=== PATIENT | female | born 2000 | race African-American/Black ===

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

== ENCOUNTER 2019-01-06 20:23 | Emergency (ER) | payer MEDICAID ==
--- NOTE | 2019-01-07 00:35 | ER Document Report ---
HPI - HPI Patient complains to provider of: Cannot hold anything in her right hand Time Seen by Provider: 01/07/19 00:27 Pain Level: 4 Context: 18-year-old well-appearing female presents to the emergency department for chief complaint of inability to hold anything in her right hand. Okay patient has MS is concerned she is having a flare. Patient denies any vision changes. Patient denies any other motor problems. Patient denies any other symptoms as this is a localized problem. - REPRODUCTIVE LMP: now Reproductive: DENIES: : Past Medical History - Social History Smoking Status: Unknown if Ever Smoked Family History: Reviewed & Not Pertinent, Thyroid Disfunction, Other - Anemia - Past Medical History Cardiac Medical History: Denies: Hx Coronary Artery Disease, Hx Heart Attack, Hx Hypertension Pulmonary Medical History: Reports: Hx Bronchitis Denies: Hx Asthma, Hx COPD, Hx Pneumonia Neurological Medical History: Reports: Hx Migraine - MS. Denies: Hx Cerebrovascular Accident, Hx Seizures Renal/ Medical History: Reports: Hx Pelvic Inflammatory Disease. Denies: Hx Peritoneal Dialysis Musculoskeletal Medical History: Denies Hx Arthritis, Reports Hx Multiple Sclerosis - [facility]ed at [facility]. Currently Dr. Weinberg. Spoke to her today Psychiatric Medical History: Reports: Hx Depression - Immunizations Immunizations up to date: Yes Hx Diphtheria, Pertussis, Tetanus Vaccination: Yes - <5 years Vertical Provider Document - CONSTITUTIONAL Notes: PHYSICAL EXAMINATION: Reviewed vital signs and charting by RN GENERAL: Alert, interacts well. No acute distress. HEAD: Normocephalic, atraumatic. EYES: Pupils equal, round, and reactive to light. Extraocular movements intact. ENT: Oral mucosa moist, tongue midline. NECK: Full range of motion. Supple. Trachea midline. LUNGS: Clear to auscultation bilaterally, no wheezes, rales, or rhonchi. No respiratory distress. HEART: Regular rate and rhythm. No murmur ABDOMEN: soft, non-tender. Non-distended. Bowel sounds present in all 4 quadrants. no McBurney's point tenderness, no Mak sign. EXTREMITIES: Moves all 4 extremities spontaneously. No edema, No cyanosis. BACK: no cervical, thoracic, lumbar midline tenderness. No saddle anesthesia, normal distal neurovascular exam. NEUROLOGICAL: Alert and oriented. Normal speech. 5/5 strength bilateral upper and lower extremities. 5/5 director mortgage strength bilateral. I asked patient to hold bottle in her right hand and her right hand starts shaking. No focal neuro deficits. PSYCH: Normal affect, normal mood. SKIN: Warm, dry, normal turgor. No rashes or lesions noted. - INFECTION CONTROL TRAVEL OUTSIDE OF THE [place] IN LAST 30 DAYS: No Course - Re-evaluation Re-evalutation: 01/07/19 00:29 Well-appearing 18-year-old female presents with inability to hold anything steady in her right hand. She does have a normal strength and is concerned she is having an MS flareup patient states that she has a follow-up with a neurologist on January 09. Plan is to give her stress dose of Solu- Medrol 1000 mg with a standing order to receive stress doses of 1000 mg for the next 2 days. Patient denies any visual disturbances. 01/07/19 00:35 01/07/19 00:44 - Vital Signs Vital signs: Temp Pulse Resp BP Pulse Ox 98.4 F 66 15 114/81 100 01/06/19 20:54 01/06/19 20:54 01/06/19 20:54 01/06/19 20:54 01/06/19 20:54 Discharge - Discharge Clinical Impression: Tremor of right hand Condition: Good Disposition: HOME, SELF-CARE Additional Instructions: You are seen the emergency department this evening for your right hand being unsteady. Because this is happened in the past and he states this is consistent with a MS flareup we have given you 1 dose of steroids here in the emergency department. Patient relations will contact you and you must come back for the next 2 days to get another dose tomorrow and then the following day. Please return to the emergency department if you become acutely weak, pass out, you are unable to move your arms or legs. Or if any other concerning symptoms.
[2019-01-07] MEDS ORDERED: METHYLPREDNISOLONE INJ 1000 MG VIAL IV ONE ×2 (00:36→21:00)
[2019-01-07] MEDS ORDERED: METHYLPREDNISOLONE INJ 1000 MG VIAL IV SCH (00:45)
[2019-01-07 03:03] VITALS: BP 120/67
[2019-01-08] MEDS ORDERED: METHYLPREDNISOLONE INJ 1000 MG VIAL IV SCH (21:30)
== END 2019-01-07 00:30 | disposition home or self-care (01) ==
LOC: ER 20:23
DX: R25.1 Tremor, unspecified (principal); G35 Multiple sclerosis
CPT/HCPCS: J2930

== ENCOUNTER 2019-01-29 14:30 | Emergency (ER) | payer MEDICAID ==
--- NOTE | 2019-01-29 14:53 | ER Document Report ---
ED Medical Screen (RME) - General Chief Complaint: Weakness Stated Complaint: HAND SHAKING Time Seen by Provider: 01/29/19 14:51 Mode of Arrival: Ambulatory Information source: Patient TRAVEL OUTSIDE OF THE [place] IN LAST 30 DAYS: No - HPI Patient complains to provider of: MS exacerbation Onset: This morning - pt has MS and has had facial pain and R hand shaking - Related Data Allergies/Adverse Reactions: No Known Allergies Allergy (Verified 01/29/19 14:31) Past Medical History - Social History Family history: None - Past Medical History Cardiac Medical History: Denies: Hx Coronary Artery Disease, Hx Heart Attack, Hx Hypertension Pulmonary Medical History: Reports: Hx Bronchitis Denies: Hx Asthma, Hx COPD, Hx Pneumonia Neurological Medical History: Reports: Hx Migraine - MS. Denies: Hx Cerebrovascular Accident, Hx Seizures Renal/ Medical History: Reports: Hx Pelvic Inflammatory Disease. Denies: Hx Peritoneal Dialysis Musculoskeltal Medical History: Denies Hx Arthritis, Reports Hx Multiple Sclerosis - Followed at [facility]. Currently Dr. Weinberg. Spoke to her today Psychiatric Medical History: Reports: Hx Depression - Immunizations Immunizations up to date: Yes Hx Diphtheria, Pertussis, Tetanus Vaccination: Yes - <5 years Physical Exam - Vital signs Vitals: Temp Pulse Resp BP Pulse Ox 98.3 F 73 18 124/79 99 01/29/19 14:37 01/29/19 14:37 01/29/19 14:37 01/29/19 14:37 01/29/19 14:37 Course - Vital Signs Vital signs: Temp Pulse Resp BP Pulse Ox 98.3 F 73 18 124/79 99 01/29/19 14:37 01/29/19 14:37 01/29/19 14:37 01/29/19 14:37 01/29/19 14:37
[2019-01-29 15:33] LABS: ABSOLUTE EOSINOPHILS # (AUTO) 0.4 10^3/uL (0.0-0.6); ABSOLUTE LYMPHOCYTES (AUTO) 1.3 10^3/uL (0.5-4.7); ABSOLUTE MONOCYTES (AUTO) 0.4 10^3/uL (0.1-1.4); ABSOLUTE NEUT (AUTO) 1.3 10^3/uL (1.7-8.2); EOSINOPHILS % (AUTO) 11.2 % (0-6); HEMATOCRIT 39.9 % (36.0-47.0); LYMPHOCYTES % (AUTO) 38.8 % (13-45); MEAN CORPUSCULAR HEMOGLOBIN 26.3 pg (27.0-33.4); MEAN CORPUSCULAR HGB CONC 32.5 g/dL (32.0-36.0); MEAN CORPUSCULAR VOLUME 81 fl (80-97); MONOCYTES % (AUTO) 10.5 % (3-13); PLATELET COUNT 313 10^3/uL (150-450); RED BLOOD COUNT 4.93 10^6/uL (3.72-5.28); RED CELL DISTRIBUTION WIDTH 14.6 % (11.5-14.0); SEGMENTED NEUTROPHILS % (AUTO) 38.5 % (42-78); TOTAL CELLS COUNTED % (AUTO) 100 %; WHITE BLOOD COUNT 3.5 10^3/uL (4.0-10.5)
[2019-01-29 15:37] LABS: APPEARANCE,URINE SLIGHTLY-CLOUDY; BILIRUBIN,URINE NEGATIVE (NEGATIVE); COLOR,URINE YELLOW; GLUCOSE, URINE NEGATIVE (NEGATIVE); KETONES,URINE NEGATIVE (NEGATIVE); LEUKOCYTE ESTERASE,URINE NEGATIVE (NEGATIVE); NITRITE,URINE NEGATIVE (NEGATIVE); PROTEIN,URINE 30 mg/dL (NEGATIVE); URINE SPECIFIC GRAVITY 1.025
[2019-01-29 15:50] LABS: ALANINE AMINOTRANSFERASE 175 U/L (5-35); ALBUMIN 4.3 g/dL (3.7-5.6); ALKALINE PHOSPHATASE 60 U/L (50-135); ANION GAP 6 (5-19); ASPARTATE AMINO TRANSFERASE 89 U/L (5-30); BILIRUBIN,DIRECT 0.1 mg/dL (0.0-0.4); BILIRUBIN,TOTAL 0.4 mg/dL (0.2-1.3); BLOOD UREA NITROGEN 11 mg/dL (7-20); CALCIUM 10.2 mg/dL (8.4-10.2); CARBON DIOXIDE 30 mmol/L (22-30); CHLORIDE 106 mmol/L (98-107); GLUCOSE 76 mg/dL (75-110); POTASSIUM 4.6 mmol/L (3.6-5.0); SODIUM 142.1 mmol/L (137-145); TOTAL PROTEIN 7.5 g/dL (6.3-8.2)
[2019-01-29] MEDS ORDERED: METOCLOPRAMIDE HCL 10 MG TABLET PO ONE (19:18)
[2019-01-29] MEDS ORDERED: PREDNISONE 20 MG TABLET PO ONE (19:18)
[2019-01-29 19:19] VITALS: BP 151/94
--- NOTE | 2019-01-29 19:19 | ER Document Report ---
ED General - General Chief Complaint: Weakness Stated Complaint: HAND SHAKING Time Seen by Provider: 01/29/19 14:51 Mode of Arrival: Ambulatory Notes: Patient is a 18-year-old female with a past medical history of multiple sclerosis who presents with several weeks of twitching of her right hand and several days of pain to the right side of her face. Patient was treated with a burst of steroids in mid December for the right hand twitching. States that this did not provide any significant change in her symptoms. She describes this is a tremulousness or spasming of her right hand that comes and goes. Nothing seems to improve or worsen that. She denies any other areas of focal weakness, numbness, confusion or changes in vision. She also complains of a throbbing, aching pain to the right side of her face it likewise comes and goes. Also notes that she has had this in the past with MS. She is scheduled to see her neurologist in 3 days she is not currently on any form of controlled medications for her MS. TRAVEL OUTSIDE OF THE [place] IN LAST 30 DAYS: No - Related Data Allergies/Adverse Reactions: No Known Allergies Allergy (Verified 01/29/19 14:31) Past Medical History - General Information source: Patient - Social History Smoking Status: Never Smoker Frequency of alcohol use: None Drug Abuse: Marijuana Lives with: Spouse/Significant other Family History: Reviewed & Not Pertinent, Thyroid Disfunction, Other - Anemia Patient has suicidal ideation: No Patient has homicidal ideation: No - Past Medical History Cardiac Medical History: Denies: Hx Coronary Artery Disease, Hx Heart Attack, Hx Hypertension Pulmonary Medical History: Reports: Hx Bronchitis Denies: Hx Asthma, Hx COPD, Hx Pneumonia Neurological Medical History: Reports: Hx Migraine - MS. Denies: Hx Cerebrovascular Accident, Hx Seizures Renal/ Medical History: Reports: Hx Pelvic Inflammatory Disease. Denies: Hx Peritoneal Dialysis Musculoskeletal Medical History: Denies Hx Arthritis, Reports Hx Multiple Sclerosis - [facility] at [facility]. Currently Dr. Weinberg. Spoke to her today Psychiatric Medical History: Reports: Hx Depression Past Surgical History: Reports: Hx Gynecologic Surgery - D&C - Immunizations Immunizations up to date: Yes Hx Diphtheria, Pertussis, Tetanus Vaccination: Yes - <5 years Review of Systems - Review of Systems Notes: Constitutional: Negative for fever. HENT: Negative for sore throat. Eyes: Negative for visual changes. Cardiovascular: Negative for chest pain. Respiratory: Negative for shortness of breath. Gastrointestinal: Negative for abdominal pain, vomiting or diarrhea. Genitourinary: Negative for dysuria. Musculoskeletal: Negative for back pain. Skin: Negative for rash. Neurological: Negative for headaches, weakness or numbness. 10 point ROS negative except as marked above and in HPI. Physical Exam - Vital signs Vitals: Temp Pulse Resp BP Pulse Ox 98.3 F 73 18 124/79 99 01/29/19 14:37 01/29/19 14:37 01/29/19 14:37 01/29/19 14:37 01/29/19 14:37 Interpretation: Normal Notes: PHYSICAL EXAMINATION: GENERAL: Well-appearing, well-nourished and in no acute distress. HEAD: Atraumatic, normocephalic. EYES: Pupils equal round and reactive to light, extraocular movements intact, sclera anicteric, conjunctiva are normal. ENT: nares patent, oropharynx clear without exudates. Moist mucous membranes. NECK: Normal range of motion, supple without lymphadenopathy LUNGS: Breath sounds clear to auscultation bilaterally and equal. No wheezes rales or rhonchi. HEART: Regular rate and rhythm without murmurs ABDOMEN: Soft, nontender, normoactive bowel sounds. No guarding, no rebound. N o masses appreciated. EXTREMITIES: Normal range of motion, no pitting or edema. No cyanosis. NEUROLOGICAL: Face symmetric. Tongue protrudes midline. Extraocular motions intact. Pupils are 2 mm and equally reactive. Normal speech, normal gait. 5 out of 5 strength in both the distal and proximal upper and lower extremities bilaterally. Sensation is grossly intact throughout. Finger to nose testing normal. Pronator drift normal. PSYCH: Normal mood, normal affect. SKIN: Warm, Dry, normal turgor, no rashes or lesions noted. Course - Re-evaluation Re-evalutation: 01/29/19 19:16 Patient presents with ongoing tremulousness of the right hand right facial pain. Has had the symptoms for approximately 3-4 weeks despite steroid infusion and has had similar symptoms in the past with her multiple sclerosis. She is unfort unately not on any form of controlled medication currently. She is scheduled to see neurology at [place] 2 days from today. On exam she has no focal neurologic deficit although appears to have a tremor of the right hand that does intermittently extinguish spontaneously. Vitals and labs otherwise unremarkable. No indication for neuroimaging today. I have given the patient a brief steroid burst of oral prednisone as well as Reglan as needed for her facial pain. At this time will discharge with return precautions and follow-up recommendations. Verbal discharge instructions given a the bedside and opportunity for questions given. Medication warnings reviewed. Patient is in agreement with this plan and has verbalized understanding of return precautions and the need for primary care follow-up in the next 24-72 hours. - Vital Signs Vital signs: Temp Pulse Resp BP Pulse Ox 98.1 F 74 16 151/94 H 98 01/29/19 19:17 01/29/19 19:17 01/29/19 19:17 01/29/19 19:17 01/29/19 19:17 - Laboratory Result Diagrams: 01/29/19 15:29 01/29/19 15:29 Laboratory results interpreted by me: 01/29/19 01/29/19 01/29/19 15:29 15:29 15:29 WBC 3.5 L MCH 26.3 L RDW 14.6 H Seg Neutrophils % 38.5 L Eosinophils % 11.2 H Absolute Neutrophils 1.3 L AST 89 H ALT 175 H Urine Protein 30 H Urine Blood SMALL H Urine Urobilinogen 2.0 H Urine Ascorbic Acid 40 H Discharge - Discharge Clinical Impression: Right hand pain, Tremor of right hand, Right facial pain Condition: Good Disposition: HOME, SELF-CARE Additional Instructions: Please follow-up with your neurologist as scheduled. Take the prednisone at that has been prescribed until completed. Take oral Reglan 1-2 tabs every 6 hours as needed for headache or facial pain. Return if you develop fever of g reater than 101 F, focal weakness, difficulty walking, confusion, or any other symptoms that are concerning to you. Prescriptions: Metoclopramide HCl [Reglan 10 mg Tablet] 1 - 2 tab PO ASDIR PRN #25 tablet PRN Reason: Prednisone [Deltasone 20 mg Tablet] 2 tab PO DAILY 5 Days tablet
== END 2019-01-29 19:55 | disposition home or self-care (01) ==
LOC: ER 14:30
DX: G35 Multiple sclerosis (principal); M79.641 Pain in right hand; R51 Headache; R25.1 Tremor, unspecified; F12.10 Cannabis abuse, uncomplicated
CPT/HCPCS: 99283; 36415; 85025; 81025; 80053; 81001; J3490; J7512

== ENCOUNTER 2019-06-17 00:55 | Emergency (ER) | payer MEDICAID ==
--- NOTE | 2019-06-17 03:35 | ER Document Report ---
HPI - HPI Time Seen by Provider: 06/17/19 03:17 Pain Level: 4 Context: Patient is a 18-year-old female who presents emergency department with a chief complaint of right ear pain. She states that she has had her ear pain for the past few weeks. Patient states that it is itchy. Patient has been using Q-tips to help clear her ear out. Patient has not seen a primary care provider for this issue. Patient denies any fever, body aches, chills, or other symptoms. - ROS Notes: REVIEW OF SYSTEMS: CONSTITUTIONAL : Denies recent illness. Denies recent unintentional weight loss. Denies fever, chills, or sweats. EENT: See HPI CARDIOVASCULAR: Denies chest pain. RESPIRATORY: Denies shortness of breath, cough, congestion, difficulty breathing, or wheezing. GASTROINTESTINAL: Denies nausea, vomiting, and diarrhea. Denies abdominal pain. Denies constipation. GENITOURINARY: Denies difficulty urinating, burning, blood in urine, urgency or frequency. MUSCULOSKELETAL: Denies neck and back pain. Denies joint pain or swelling. SKIN: See HPI HEMATOLOGIC : Denies easy bruising or bleeding. LYMPHATIC: Denies swollen, painful, enlarged glands. NEUROLOGICAL: Denies no numbness or tingling denies weakness. Denies headache. Denies altered mental status. Denies alteration in speech. PSYCHIATRIC: Denies stress, anxiety, alteration in sleep patterns, or depression. All other systems reviewed and negative. - REPRODUCTIVE Reproductive: DENIES: : Past Medical History - General Information source: Patient - Social History Smoking Status: Never Smoker Family History: Reviewed & Not Pertinent, Thyroid Disfunction, Other - Anemia - Past Medical History Cardiac Medical History: Denies: Hx Coronary Artery Disease, Hx Heart Attack, Hx Hypertension Pulmonary Medical History: Reports: Hx Bronchitis Denies: Hx Asthma, Hx COPD, Hx Pneumonia Neurological Medical History: Reports: Hx Migraine - MS. Denies: Hx Cerebrovascular Accident, Hx Seizures Renal/ Medical History: Reports: Hx Pelvic Inflammatory Disease. Denies: Hx Peritoneal Dialysis Musculoskeletal Medical History: Denies Hx Arthritis, Reports Hx Multiple Sclerosis - Followed at [facility]. Currently Dr. Weinberg. Psychiatric Medical History: Reports: Hx Depression Past Surgical History: Reports: Hx Gynecologic Surgery - D&C - Immunizations Immunizations up to date: Yes Hx Diphtheria, Pertussis, Tetanus Vaccination: Yes - <5 years Vertical Provider Document - CONSTITUTIONAL Notes: PHYSICAL EXAMINATION: GENERAL: Appears well, healthy, well-nourished, no acute distress. HEAD: Normocephalic, atraumatic. EYES: PERRL, conjunctiva normal, all extraocular movements intact, sclera nonicteric ENT: Moist mucous membranes. Dry flaky skin noted to external auditory canal. Edema, erythema, and purulent drainage noted at tympanic membrane. Injected tympanic membrane NECK: Supple, no noticeable swelling, redness, rash. Normal range of motion. LUNGS: Equal breath sounds bilaterally and clear to auscultation. No wheezes rales or rhonchi. CARDIOVASCULAR: S1-S2, regular rate, regular rhythm. Radial pulses 2+, normal. EXTREMITIES: Normal strength and range of motion, no pitting or edema. No cyanosis. NEUROLOGICAL: Moves all extremities upon command. PSYCH: Normal mood, normal affect. SKIN: Warm, dry. No rash, lesions, ulcerations noted. Normal skin turgor. Dry flaky skin to right open skin noted anteriorly of the tragus. - INFECTION CONTROL TRAVEL OUTSIDE OF THE [place] IN LAST 30 DAYS: No Course - Re-evaluation Re-evalutation: 06/17/19 03:35 Patient's physical exam is consistent with otitis media and otitis externa. She also does have some cellulitis noted. Tympanic membrane is erythematous and bulging. I will start her on Augmentin to have broad-spectrum coverage. Will cover her otitis externa. And Ciprodex. She will follow-up with ENT. Patient does not have any pain at the mastoid process. I do not suspect mastoiditis. Follow-up precautions were given. Verbal discharge instructions were given to the patient. They verbalized understanding. They are stable for discharge. - Vital Signs Vital signs: Temp Pulse Resp BP Pulse Ox 98.1 F 86 18 99/77 L 98 06/17/19 00:59 06/17/19 00:59 06/17/19 00:59 06/17/19 00:59 06/17/19 00:59 Discharge - Discharge Clinical Impression: Otitis media Qualifiers: Otitis media type: mucoid Chronicity: unspecified Laterality: right Qualified Code(s): H65.91 - Unspecified nonsuppurative otitis media, right ear Otitis externa Qualifiers: Otitis externa type: noninfectious Noninfectious otitis externa type: eczematoid Chronicity: unspecified Laterality: right Qualified Code(s): H60.541 - Acute eczematoid otitis externa, right ear Condition: Stable Disposition: HOME, SELF-CARE Instructions: Otitis Externa ([facility]) Additional Instructions: You were seen today in the emergency department for right ear pain. You are being started on antibiotics. Please take all your antibiotics as prescribed. Follow-up with the specialist below. You are being given eardrops. Place 4 drops to your right ear twice a day for 10 days. DO NOT USE Q-TIPS to clean your ears. Prescriptions: Amox Tr/Potassium Clavulanate [Augmentin 875-125 Tablet] 1 tab PO BID 10 Days #20 tablet Referrals: LISA OATES DO [ASSOCIATE] - Follow up in 1 week
[2019-06-17] MEDS ORDERED: AMOXICILLIN TR/POT CLAVULANATE 500-125 MG TAB PO ONE (03:36)
[2019-06-17] MEDS ORDERED: CIPROFLOXACIN HCL/DEXAMETH OTIC DROP 7.5 ML AD ONE (03:37)
[2019-06-17] MEDS ORDERED: AMOXICILLIN TRIHYD 250 MG CAPSULE PO ONE (03:37)
[2019-06-17 04:03] VITALS: BP 105/66
== END 2019-06-17 03:54 | disposition home or self-care (01) ==
LOC: ER 00:55
DX: H65.91 Unspecified nonsuppurative otitis media, right ear (principal); H60.541 Acute eczematoid otitis externa, right ear
CPT/HCPCS: 99282; J3490 ×3

== ENCOUNTER 2019-08-10 17:37 | Emergency (ER) | payer SELFPAY ==
--- NOTE | 2019-08-10 18:02 | ER Document Report ---
ED Medical Screen (RME) - General Chief Complaint: Numbness Stated Complaint: RIGHT SIDE NUMBNESS Time Seen by Provider: 08/10/19 17:59 Mode of Arrival: Ambulatory Information source: Patient Notes: 19-year-old female presented to ED for complaint of right-sided body pain. He states is been hurting since the beginning of the year. He states he has multiple sclerosis and has not been to an MD since before her child was born she states that every time she has a child that she has another problem with her multiple sclerosis. He states he has been having pain to the right side since her last child was born. She states she cannot see very far and she has some pain in the left side of her jaw. She states she might have a tooth ache. She states she has had MRSA in her pelvis abscess and she had a wisdom tooth pulled. I have greeted and performed a rapid initial assessment of this patient. A comprehensive ED assessment and evaluation of the patient, analysis of test results and completion of medical decision making process will be conducted by an additional ED providers. TRAVEL OUTSIDE OF THE [place] IN LAST 30 DAYS: No - Related Data Allergies/Adverse Reactions: No Known Allergies Allergy (Verified 08/10/19 17:40) Past Medical History - Social History Family history: None - Past Medical History Cardiac Medical History: Denies: Hx Coronary Artery Disease, Hx Heart Attack, Hx Hypertension Pulmonary Medical History: Reports: Hx Bronchitis Denies: Hx Asthma, Hx COPD, Hx Pneumonia Neurological Medical History: Reports: Hx Migraine - MS. Denies: Hx Cerebrovascular Accident, Hx Seizures Renal/ Medical History: Reports: Hx Pelvic Inflammatory Disease. Denies: Hx Peritoneal Dialysis Musculoskeltal Medical History: Denies Hx Arthritis, Reports Hx Multiple Sclerosis - Followed at [facility]. Currently Dr. Weinberg. Psychiatric Medical History: Reports: Hx Depression Past Surgical History: Reports: Hx Gynecologic Surgery - D&C - Immunizations Immunizations up to date: Yes Hx Diphtheria, Pertussis, Tetanus Vaccination: Yes - <5 years Physical Exam - Vital signs Vitals: Temp Pulse Resp BP Pulse Ox 98.1 F 81 18 100/71 96 08/10/19 17:45 08/10/19 17:45 08/10/19 17:45 08/10/19 17:45 08/10/19 17:45 Course - Vital Signs Vital signs: Temp Pulse Resp BP Pulse Ox 98.1 F 81 18 100/71 96 08/10/19 17:45 08/10/19 17:45 08/10/19 17:45 08/10/19 17:45 08/10/19 17:45
[2019-08-10 19:57] LABS: ABSOLUTE BASOPHILS # (AUTO) 0.1 10^3/uL (0.0-0.2); ABSOLUTE EOSINOPHILS # (AUTO) 0.2 10^3/uL (0.0-0.6); ABSOLUTE LYMPHOCYTES (AUTO) 1.8 10^3/uL (0.5-4.7); ABSOLUTE MONOCYTES (AUTO) 0.3 10^3/uL (0.1-1.4); ABSOLUTE NEUT (AUTO) 1.5 10^3/uL (1.7-8.2); BASOPHILS % (AUTO) 1.5 % (0-2); EOSINOPHILS % (AUTO) 4.1 % (0-6); HEMATOCRIT 33.6 % (36.0-47.0); HEMOGLOBIN 10.7 g/dL (12.0-15.5); MEAN CORPUSCULAR HEMOGLOBIN 22.6 pg (27.0-33.4); MEAN CORPUSCULAR HGB CONC 31.8 g/dL (32.0-36.0); MEAN CORPUSCULAR VOLUME 71 fl (80-97); MONOCYTES % (AUTO) 8.7 % (3-13); PLATELET COUNT 334 10^3/uL (150-450); RED BLOOD COUNT 4.73 10^6/uL (3.72-5.28); RED CELL DISTRIBUTION WIDTH 17.5 % (11.5-14.0); SEGMENTED NEUTROPHILS % (AUTO) 39.7 % (42-78); TOTAL CELLS COUNTED % (AUTO) 100 %; WHITE BLOOD COUNT 3.8 10^3/uL (4.0-10.5)
[2019-08-10 20:12] LABS: APPEARANCE,URINE SLIGHTLY-CLOUDY; BILIRUBIN,URINE NEGATIVE (NEGATIVE); COLOR,URINE YELLOW; GLUCOSE, URINE NEGATIVE (NEGATIVE); KETONES,URINE NEGATIVE (NEGATIVE); LEUKOCYTE ESTERASE,URINE NEGATIVE (NEGATIVE); NITRITE,URINE NEGATIVE (NEGATIVE); PROTEIN,URINE NEGATIVE (NEGATIVE); URINE SPECIFIC GRAVITY 1.021
[2019-08-10 20:16] LABS: ALBUMIN 4.7 g/dL (3.5-5.0); ALKALINE PHOSPHATASE 70 U/L (38-126); ANION GAP 9 (5-19); ASPARTATE AMINO TRANSFERASE 26 U/L (14-36); BILIRUBIN,DIRECT 0.1 mg/dL (0.0-0.4); BILIRUBIN,TOTAL 0.4 mg/dL (0.2-1.3); BLOOD UREA NITROGEN 10 mg/dL (7-20); CARBON DIOXIDE 25 mmol/L (22-30); CHLORIDE 107 mmol/L (98-107); GLUCOSE 82 mg/dL (75-110); POTASSIUM 3.8 mmol/L (3.6-5.0)
[2019-08-10 20:24] LABS: ADD MANUAL MICROSCOPIC YES
[2019-08-10 20:26] LABS: WBC,URINE RARE /HPF
[2019-08-10 20:35] LABS: URINE AMPHETAMINES SCREEN NEGATIVE; URINE BARBITURATES SCREEN NEGATIVE; URINE BENZODIAZEPINES SCREEN NEGATIVE; URINE COCAINE SCREEN NEGATIVE; URINE MARIJUANA (THC) SCREEN UNCONFIRMED POSITIVE; URINE METHADONE SCREEN NEGATIVE; URINE PHENCYCLIDINE SCREEN NEGATIVE
[2019-08-10] MEDS ORDERED: PREDNISONE 20 MG TABLET PO ONE (22:44)
--- NOTE | 2019-08-10 22:47 | ER Document Report ---
HPI - HPI Time Seen by Provider: 08/10/19 17:59 Pain Level: Denies Notes: Patient is a 19-year-old female presenting to the emergency room with pain to the right side of her body since November. Patient reports she has a history of chronic pain due to multiple medical conditions. She denies any acute illness, denies any nausea, vomiting, diarrhea, fever, dysuria, vaginal bleeding or abnormal discharge. - REPRODUCTIVE Reproductive: DENIES: : Past Medical History - General Information source: Patient - Social History Smoking Status: Never Smoker Chew tobacco use (# tins/day): No Frequency of alcohol use: None Drug Abuse: None Family History: Reviewed & Not Pertinent, Thyroid Disfunction, Other - Anemia Patient has suicidal ideation: No Patient has homicidal ideation: No - Past Medical History Cardiac Medical History: Denies: Hx Coronary Artery Disease, Hx Heart Attack, Hx Hypertension Pulmonary Medical History: Reports: Hx Bronchitis Denies: Hx Asthma, Hx COPD, Hx Pneumonia Neurological Medical History: Reports: Hx Migraine - MS. Denies: Hx Cerebrovascular Accident, Hx Seizures Renal/ Medical History: Reports: Hx Pelvic Inflammatory Disease. Denies: Hx Peritoneal Dialysis Musculoskeletal Medical History: Denies Hx Arthritis, Reports Hx Multiple Sclerosis - Followed at [facility]. Currently Dr. Weinberg. Psychiatric Medical History: Reports: Hx Depression Past Surgical History: Reports: Hx Gynecologic Surgery - D&C - Immunizations Immunizations up to date: Yes Hx Diphtheria, Pertussis, Tetanus Vaccination: Yes - <5 years Vertical Provider Document - CONSTITUTIONAL Notes: PHYSICAL EXAMINATION: GENERAL: Well-appearing, well-nourished and in no acute distress. HEAD: Atraumatic, normocephalic. EYES: Pupils equal round and reactive to light, extraocular movements intact, conjunctiva are normal. ENT: Nares patent, oropharynx clear without exudates. Moist mucous membranes. NECK: Normal range of motion, supple without lymphadenopathy LUNGS: Breath sounds clear to auscultation bilaterally and equal. No wheezes rales or rhonchi. HEART: Regular rate and rhythm without murmurs ABDOMEN: Soft, nontender, nondistended abdomen. No guarding, no rebound. No masses appreciated. Female : deferred Musculoskeletal: Normal range of motion, no pitting or edema. No cyanosis. NEUROLOGICAL: Cranial nerves grossly intact. Normal speech, normal gait. Normal sensory, motor exams PSYCH: Normal mood, normal affect. SKIN: Warm, Dry, normal turgor, no rashes or lesions noted. - INFECTION CONTROL TRAVEL OUTSIDE OF THE [place] IN LAST 30 DAYS: No Course - Re-evaluation Re-evalutation: Patient appears well, nontoxic is alert and answering all questions. Her work- up today was unremarkable. She will be started on steroid course for an MS flare. Patient verbalizes understanding and agreement with this plan. The patient's emergency department workup and current diagnosis were explained to the patient and or family. Follow-up instructions were provided. Medications if prescribed were discussed. Instructions for when to return to the emergency department including specific worrisome symptoms were discussed with the patient and/or family. - Vital Signs Vital signs: Temp Pulse Resp BP Pulse Ox 98.1 F 79 16 98/67 L 100 08/10/19 17:45 08/10/19 21:28 08/10/19 21:28 08/10/19 21:28 08/10/19 21:28 - Laboratory Result Diagrams: 08/10/19 19:35 08/10/19 19:35 Laboratory results interpreted by me: 08/10/19 08/10/19 19:35 19:35 WBC 3.8 L Hgb 10.7 L Hct 33.6 L MCV 71 L MCH 22.6 L MCHC 31.8 L RDW 17.5 H Lymph % (Auto) 46.0 H Absolute Neuts (auto) 1.5 L Seg Neutrophils % 39.7 L Urine Urobilinogen 2.0 H Discharge - Discharge Clinical Impression: Multiple sclerosis Chronic pain Qualifiers: Chronic pain type: other chronic pain Qualified Code(s): G89.29 - Other chronic pain Condition: Stable Disposition: HOME, SELF-CARE Additional Instructions: You were seen in the emergency department today for your flareup of chronic pain. Your work-up today was unremarkable. I am starting you on a round of steroids. It is important that you call your primary care provider, let them know you are seen here in the emergency department and had a normal work-up. Let them know that you are having a flareup of your MS. Please return to the emergency department for any new or worsening symptoms. Prescriptions: Prednisone [Sterapred Ds] 1 pkg PO ASDIR PRN 12 Days [email or web address] PRN Reason: Referrals: [facility] [Provider Group] - Follow up as needed
[2019-08-10 23:03] VITALS: BP 114/54
== END 2019-08-10 23:03 | disposition home or self-care (01) ==
LOC: ER 17:37
DX: G35 Multiple sclerosis (principal); G89.29 Other chronic pain
CPT/HCPCS: 99283; 36415; 84703; 85025; 80053; 81001; 80307; J7512

== ENCOUNTER 2019-10-09 20:31 | Emergency (ER) | payer SELFPAY ==
--- NOTE | 2019-10-09 21:20 | ER Document Report ---
ED Medical Screen (RME) - General Chief Complaint: Vaginal Bleeding Stated Complaint: VAGINAL BLEEDING Time Seen by Provider: 10/09/19 21:13 Mode of Arrival: Ambulatory Information source: Patient Notes: Patient is a 19-year-old female presenting with complaints of vaginal bleeding. Patient reports she has been bleeding vaginally for nearly 2 weeks now. She reports that she believes she is , states she had 2+ tests at the end of August at home. She has not seen [facility] or had confirmation. She reports her last normal period prior to the bleeding she is currently having was back in March. I have greeted and performed a rapid initial assessment of this patient. A comprehensive ED assessment and evaluation of the patient, analysis of test results and completion of the medical decision making process will be conducted by additional ED providers. I have specifically instructed the patient or family members with the patient to immediately return to any nursing staff should anything change in the patient's condition or with their chief complaint. This medical record was dictated with voice recognizing software. There may be grammatical, syntax errors that are unintended. TRAVEL OUTSIDE OF THE [place] IN LAST 30 DAYS: No - Related Data Allergies/Adverse Reactions: No Known Allergies Allergy (Verified 10/09/19 21:05) Home Medications: No home medication Past Medical History - Social History Chew tobacco use (# tins/day): No Frequency of alcohol use: None Drug Abuse: None Family history: None - Past Medical History Cardiac Medical History: Denies: Hx Coronary Artery Disease, Hx Heart Attack, Hx Hypertension Pulmonary Medical History: Reports: Hx Bronchitis Denies: Hx Asthma, Hx COPD, Hx Pneumonia Neurological Medical History: Reports: Hx Migraine - MS. Denies: Hx Cerebrovascular Accident, Hx Seizures Renal/ Medical History: Reports: Hx Pelvic Inflammatory Disease. Denies: Hx Peritoneal Dialysis Musculoskeltal Medical History: Denies Hx Arthritis, Reports Hx Multiple Sclerosis - Followed at [facility]. Currently Dr. Weinberg. Psychiatric Medical History: Reports: Hx Depression Past Surgical History: Reports: Hx Gynecologic Surgery - D&C - Immunizations Immunizations up to date: Yes Hx Diphtheria, Pertussis, Tetanus Vaccination: Yes - <5 years Physical Exam - Vital signs Vitals: Temp Pulse Resp BP Pulse Ox 98.4 F 95 20 135/74 H 100 10/09/19 20:47 10/09/19 20:47 10/09/19 20:47 10/09/19 20:47 10/09/19 20:47 Course - Vital Signs Vital signs: Temp Pulse Resp BP Pulse Ox 98.4 F 95 20 135/74 H 100 10/09/19 20:47 10/09/19 20:47 10/09/19 20:47 10/09/19 20:47 10/09/19 20:47
[2019-10-09 22:12] LABS: ABSOLUTE EOSINOPHILS # (AUTO) 0.1 10^3/uL (0.0-0.6); ABSOLUTE LYMPHOCYTES (AUTO) 1.1 10^3/uL (0.5-4.7); ABSOLUTE MONOCYTES (AUTO) 0.1 10^3/uL (0.1-1.4); BASOPHILS % (AUTO) 0.7 % (0-2); EOSINOPHILS % (AUTO) 4.8 % (0-6); HEMATOCRIT 33.4 % (36.0-47.0); HEMOGLOBIN 10.9 g/dL (12.0-15.5); LYMPHOCYTES % (AUTO) 45.9 % (13-45); MEAN CORPUSCULAR HEMOGLOBIN 24.1 pg (27.0-33.4); MEAN CORPUSCULAR HGB CONC 32.8 g/dL (32.0-36.0); MEAN CORPUSCULAR VOLUME 73 fl (80-97); MONOCYTES % (AUTO) 5.6 % (3-13); PLATELET COUNT 303 10^3/uL (150-450); RED BLOOD COUNT 4.55 10^6/uL (3.72-5.28); RED CELL DISTRIBUTION WIDTH 19.6 % (11.5-14.0); TOTAL CELLS COUNTED % (AUTO) 100 %; WHITE BLOOD COUNT 2.3 10^3/uL (4.0-10.5)
[2019-10-09 22:14] LABS: APPEARANCE,URINE TURBID; BILIRUBIN,URINE NEGATIVE (NEGATIVE); COLOR,URINE YELLOW; GLUCOSE, URINE NEGATIVE (NEGATIVE); KETONES,URINE NEGATIVE (NEGATIVE); LEUKOCYTE ESTERASE,URINE LARGE (NEGATIVE); NITRITE,URINE NEGATIVE (NEGATIVE); PROTEIN,URINE 30 mg/dL (NEGATIVE); URINE SPECIFIC GRAVITY 1.024; UROBILINOGEN,URINE NEGATIVE mg/dL (<2.0)
--- NOTE | 2019-10-09 23:52 | ER Document Report ---
ED GI/ - General Chief Complaint: Vaginal Bleeding Stated Complaint: VAGINAL BLEEDING Time Seen by Provider: 10/09/19 21:13 Mode of Arrival: Ambulatory Notes: Clara Salas is a 19 yo F 1 miscarriage 1 with PMH of MS presenting to the ED for vaginal bleeding. Patient states that she thought she was having a miscarriage. She has 2 otherwise healthy daughters ages 1-year-old and 2 years old. She states that she has not seen any OB providers since his but has had 2 home positive test. She also adds that the vaginal bleeding that she is having currently began at the end of August and has been going on on and off for the past 2 weeks. She has not soaked through any pads. She denies any lightheadedness, shortness of breath or chest pain. She states that her last normal menses was in March but is unsure what time of the month in March. She denies any other complaints at this point in time including abdominal pain, vomiting or diarrhea. She does endorse daily nausea with intermittent episodes of vomiting. TRAVEL OUTSIDE OF THE [place] IN LAST 30 DAYS: No - Related Data Allergies/Adverse Reactions: No Known Allergies Allergy (Verified 10/09/19 21:05) Home Medications: No home medication Past Medical History - General Information source: Patient - Social History Smoking Status: Current Some Day Smoker Chew tobacco use (# tins/day): No Frequency of alcohol use: None Drug Abuse: None Family History: Reviewed & Not Pertinent, Thyroid Disfunction, Other - Anemia Patient has suicidal ideation: No Patient has homicidal ideation: No - Past Medical History Cardiac Medical History: Denies: Hx Coronary Artery Disease, Hx Heart Attack, Hx Hypertension Pulmonary Medical History: Reports: Hx Bronchitis Denies: Hx Asthma, Hx COPD, Hx Pneumonia Neurological Medical History: Reports: Hx Migraine - MS. Denies: Hx Cerebrovascular Accident, Hx Seizures Renal/ Medical History: Reports: Hx Pelvic Inflammatory Disease. Denies: Hx Peritoneal Dialysis Musculoskeletal Medical History: Denies Hx Arthritis, Reports Hx Multiple Sclerosis - Followed at [facility]. Currently Dr. Weinberg. Psychiatric Medical History: Reports: Hx Depression Past Surgical History: Reports: Hx Gynecologic Surgery - D&C - Immunizations Immunizations up to date: Yes Hx Diphtheria, Pertussis, Tetanus Vaccination: Yes - <5 years Review of Systems - Review of Systems Constitutional: See HPI EENT: No symptoms reported Cardiovascular: No symptoms reported Respiratory: No symptoms reported Gastrointestinal: No symptoms reported Genitourinary: No symptoms reported Female Genitourinary: See HPI Musculoskeletal: No symptoms reported Skin: No symptoms reported Hematologic/Lymphatic: No symptoms reported Neurological/Psychological: No symptoms reported Physical Exam - Vital signs Vitals: Temp Pulse Resp BP Pulse Ox 98.4 F 95 20 135/74 H 100 10/09/19 20:47 10/09/19 20:47 10/09/19 20:47 10/09/19 20:47 10/09/19 20:47 Interpretation: Normal - General General appearance: Appears well, Alert - HEENT Head: Normocephalic, Atraumatic Eyes: Normal Pupils: PERRL - Respiratory Respiratory status: No respiratory distress Chest status: Nontender Breath sounds: Normal Chest palpation: Normal - Cardiovascular Rhythm: Regular Heart sounds: Normal auscultation Murmur: No - Abdominal Inspection: Normal Distension: No distension Bowel sounds: Normal Tenderness: Nontender Organomegaly: No organomegaly - Back Back: Normal, Nontender - Extremities General upper extremity: Normal inspection, Nontender, Normal color, Normal ROM, Normal temperature General lower extremity: Normal inspection, Nontender, Normal color, Normal ROM, Normal temperature, Normal weight bearing. No: Quincy's sign - Neurological Neuro grossly intact: Yes Cognition: Normal Orientation: AAOx4 Analy Coma Scale Eye Opening: Spontaneous Analy Coma Scale Verbal: Oriented [place] Coma Scale Motor: Obeys Commands [place] Coma Scale Total: 15 Speech: Normal Motor strength normal: LUE, RUE, LLE, RLE Sensory: Normal - Psychological Associated symptoms: Normal affect, Normal mood - Skin Skin Temperature: Warm Skin Moisture: Dry Skin Color: Normal Course - Re-evaluation Re-evalutation: Patient is generally well-appearing and nontoxic. Initial vitals within normal limits. Differential diagnosis includes first trimester vaginal bleeding, miscarriage, placenta previa, ABO incompatibility, anemia,subarachnoid hemorrhage 10/09/19 23:58 Labs obtained from triage including RhoGam work-up. CBC does not show leukocytosis or left shift. H&H is low at 10.9/33.4, however essentially unchanged from July. Serum beta hCG is greater than 290,000. UA shows leukocyte esterase and small amount of blood. There is overall 100 WBCs and 2+ bacteria. Will treat as symptomatic bacteriuria in . And ordered for 1 g of ceftriaxone. Pending CMP as well as ultrasound. 10/10/19 01:04 Patient's ultrasound shows a live IUP. Blood type is O+ so RhoGam is not indicated. Patient will follow up with OB. Given return precautions. 10/10/19 03:10 I explained to the patient how imperative it is that she follow-up with OB as soon as possible. - Vital Signs Vital signs: Temp Pulse Resp BP Pulse Ox 98.4 F 95 20 135/74 H 100 10/09/19 20:47 10/09/19 20:47 10/09/19 20:47 10/09/19 20:47 10/09/19 20:47 - Laboratory Result Diagrams: 10/09/19 21:56 Laboratory results interpreted by me: 10/09/19 10/09/19 10/09/19 21:56 21:56 21:56 WBC 2.3 L Hgb 10.9 L Hct 33.4 L MCV 73 L MCH 24.1 L RDW 19.6 H Lymph % (Auto) 45.9 H Absolute Neuts (auto) 1.0 L Beta HCG, Quant 275869.00 H Urine Protein 30 H Urine Blood SMALL H Ur Leukocyte Esterase LARGE H Discharge - Discharge Clinical Impression: Intrauterine , First trimester , Vaginal bleeding in Clinical Impression: (Ruled Out): Vaginal bleeding in patient after first trimester Condition: Good Disposition: HOME, SELF-CARE Admitting Provider: [facility] Instructions: Bleeding During Early ([facility]), ([facility]) Additional Instructions: It is important that you call and establish care with an OB. You have a live pr egnancy in the appropriate place (in the uterus). You are approximately 9 weeks 4 days. If you develop lightheadedness, worsening abdominal pain, unable to keep down food or drink, or any other concerning symptoms, return to the ED for further evaluation.
[2019-10-10] MEDS ORDERED: CEFTRIAXONE INJ 1000 MG VIAL IV ONE (00:01)
--- NOTE | 2019-10-10 01:04 | RADIOLOGY REPORT (SQ) ---
Ultrasound OB less than 14 weeks on 10/10/2019 at 12:08 AM CLINICAL INDICATION: Vaginal bleeding, COMPARISON: None this FINDINGS: Multiple sonographic images are obtained throughout the pelvis by transabdominal approach only, both transverse and sagittal images are obtained. Uterus measures approximately 11.6 x 8.1 x 8.4 cm. The right ovary measures approximately 2.8 x 1.7 x 1.7 cm. Flow is demonstrated in the right ovary. Left ovary measures approximately 2.1 x 1.1 x 1.1 cm. Flow is demonstrated in the left ovary. No adnexal mass or fluid collection is noted. There is a single early intrauterine with gestational sac, yolk sac and fetus. Estimated gestational age by crown-rump length measurement is an approximate nine week four day gestation. Gestational sac shape appears unremarkable. Gestation is too early for placental evaluation. Positive cardiac activity is noted with a heart rate of 165 bpm. IMPRESSION: Single living approximate nine week four day intrauterine .
[2019-10-10 03:07] VITALS: BP 108/51
== END 2019-10-10 03:17 | disposition home or self-care (01) ==
LOC: ER 20:31
DX: O46.91 Antepartum hemorrhage, unspecified, first trimester (principal); Z3A.00 Weeks of gestation of pregnancy not specified
CPT/HCPCS: 86900; 86901; 36415; 84702; 85025; 81001; 76801; J0696

== ENCOUNTER 2019-11-16 14:41 | Emergency (ER) | payer MEDICAID ==
--- NOTE | 2019-11-16 16:18 | ER Document Report ---
ED Medical Screen (RME) - General Chief Complaint: Headache Stated Complaint: HEADACHE Time Seen by Provider: 11/16/19 15:49 Mode of Arrival: Ambulatory Information source: Patient Notes: 19-year-old female patient with MS presenting to the emergency department with vaginal bleeding in the setting of . Patient is a , states she is approximately 15 weeks although per reviewing [facility] records she is probably about 14 weeks . Patient reports intermittent vaginal bleeding over the last 2 weeks. She denies passing any clots. She has not had any [facility] [employer] care for this . Patient alert, answering all questions, patient does not seem to understand the depth of her situation. Keeps stating that she did not really want this but that she has sex with her when he wants that although they do not live together. Patient appears to be developmentally delayed. Her abdomen is soft and nontender. I have greeted and performed a rapid initial assessment of this patient. A comprehensive ED assessment and evaluation of the patient, analysis of test results and completion of the medical decision making process will be conducted by additional ED providers. I have specifically instructed the patient or family members with the patient to immediately return to any nursing staff should anything change in the patient's condition or with their chief complaint. This medical record was dictated with voice recognizing software. There may be grammatical, syntax errors that are unintended. TRAVEL OUTSIDE OF THE [place] IN LAST 30 DAYS: No - Related Data Allergies/Adverse Reactions: No Known Allergies Allergy (Verified 11/16/19 15:40) Past Medical History - Social History Chew tobacco use (# tins/day): No Frequency of alcohol use: None Drug Abuse: None Family history: None - Past Medical History Cardiac Medical History: Denies: Hx Coronary Artery Disease, Hx Heart Attack, Hx Hypertension Pulmonary Medical History: Reports: Hx Bronchitis Denies: Hx Asthma, Hx COPD, Hx Pneumonia Neurological Medical History: Reports: Hx Migraine - MS. Denies: Hx Cerebrovascular Accident, Hx Seizures Renal/ Medical History: Reports: Hx Pelvic Inflammatory Disease. Denies: Hx Peritoneal Dialysis Musculoskeltal Medical History: Denies Hx Arthritis, Reports Hx Multiple Sclerosis - Followed at [facility]. Currently Dr. Weinberg. Psychiatric Medical History: Reports: Hx Depression Past Surgical History: Reports: Hx Gynecologic Surgery - D&C - Immunizations Immunizations up to date: Yes Hx Diphtheria, Pertussis, Tetanus Vaccination: Yes - <5 years Physical Exam - Vital signs Vitals: Temp Pulse Resp BP Pulse Ox 98.7 F 75 18 132/65 H 100 11/16/19 15:01 11/16/19 15:01 11/16/19 15:01 11/16/19 15:01 11/16/19 15:01 Course - Vital Signs Vital signs: Temp Pulse Resp BP Pulse Ox 98.7 F 75 18 132/65 H 100 11/16/19 15:40 11/16/19 15:40 11/16/19 15:40 11/16/19 15:40 11/16/19 15:40
[2019-11-16 18:09] LABS: ABSOLUTE BASOPHILS # (AUTO) 0.1 10^3/uL (0.0-0.2); ABSOLUTE EOSINOPHILS # (AUTO) 0.8 10^3/uL (0.0-0.6); ABSOLUTE LYMPHOCYTES (AUTO) 1.8 10^3/uL (0.5-4.7); ABSOLUTE MONOCYTES (AUTO) 0.5 10^3/uL (0.1-1.4); ABSOLUTE NEUT (AUTO) 4.7 10^3/uL (1.7-8.2); BASOPHILS % (AUTO) 1.1 % (0-2); EOSINOPHILS % (AUTO) 10.1 % (0-6); HEMATOCRIT 34.6 % (36.0-47.0); LYMPHOCYTES % (AUTO) 22.9 % (13-45); MEAN CORPUSCULAR HEMOGLOBIN 23.6 pg (27.0-33.4); MEAN CORPUSCULAR HGB CONC 31.7 g/dL (32.0-36.0); MEAN CORPUSCULAR VOLUME 75 fl (80-97); MONOCYTES % (AUTO) 6.4 % (3-13); PLATELET COUNT 335 10^3/uL (150-450); RED BLOOD COUNT 4.65 10^6/uL (3.72-5.28); RED CELL DISTRIBUTION WIDTH 18.6 % (11.5-14.0); SEGMENTED NEUTROPHILS % (AUTO) 59.5 % (42-78); TOTAL CELLS COUNTED % (AUTO) 100 %; WHITE BLOOD COUNT 7.9 10^3/uL (4.0-10.5)
[2019-11-16 18:22] LABS: AMORPHOUS SEDIMENT,URINE TRACE /HPF; APPEARANCE,URINE CLOUDY; BILIRUBIN,URINE NEGATIVE (NEGATIVE); COLOR,URINE YELLOW; GLUCOSE, URINE NEGATIVE (NEGATIVE); KETONES,URINE NEGATIVE (NEGATIVE); LEUKOCYTE ESTERASE,URINE LARGE (NEGATIVE); NITRITE,URINE NEGATIVE (NEGATIVE); PROTEIN,URINE NEGATIVE (NEGATIVE); URINE SPECIFIC GRAVITY 1.019; UROBILINOGEN,URINE NEGATIVE mg/dL (<2.0)
--- NOTE | 2019-11-16 18:24 | ER Document Report ---
ED General - General Chief Complaint: Headache Stated Complaint: HEADACHE Time Seen by Provider: 11/16/19 15:49 Primary Care Provider: [facility] [Provider Group] - Follow up in 1 week Mode of Arrival: Ambulatory Notes: Patient is a G5, P2 15-week gestation 19-year-old female presents to the emergency department with a chief complaint of vaginal bleeding. Patient states that she has had on and off bleeding for the past 2 weeks. Patient was seen in the health department 3 days ago and was tested for gonorrhea and chlamydia and she states that it was negative. She admits to intermittent dysuria. She has had her dysuria since this past week. TRAVEL OUTSIDE OF THE [place] IN LAST 30 DAYS: No - Related Data Allergies/Adverse Reactions: No Known Allergies Allergy (Verified 11/16/19 15:40) Past Medical History - General Information source: Patient - Social History Smoking Status: Never Smoker Chew tobacco use (# tins/day): No Frequency of alcohol use: None Drug Abuse: None Family History: Reviewed & Not Pertinent, Thyroid Disfunction, Other - Anemia Patient has suicidal ideation: No Patient has homicidal ideation: No - Past Medical History Cardiac Medical History: Denies: Hx Coronary Artery Disease, Hx Heart Attack, Hx Hypertension Pulmonary Medical History: Reports: Hx Bronchitis Denies: Hx Asthma, Hx COPD, Hx Pneumonia Neurological Medical History: Reports: Hx Migraine - MS. Denies: Hx Cerebrovascular Accident, Hx Seizures Renal/ Medical History: Reports: Hx Pelvic Inflammatory Disease. Denies: Hx Peritoneal Dialysis Musculoskeletal Medical History: Denies Hx Arthritis, Reports Hx Multiple Sclerosis - Followed at [facility]. Currently Dr. Weinberg. Psychiatric Medical History: Reports: Hx Depression Past Surgical History: Reports: Hx Gynecologic Surgery - D&C - Immunizations Immunizations up to date: Yes Hx Diphtheria, Pertussis, Tetanus Vaccination: Yes - <5 years Review of Systems - Review of Systems Notes: REVIEW OF SYSTEMS: CONSTITUTIONAL : Denies recent illness. Denies recent unintentional weight loss. Denies fever, chills, or sweats. EENT: Denies eye, ear, throat, or mouth pain, discharge, or symptoms. Denies nasal or sinus congestion. CARDIOVASCULAR: Denies chest pain. RESPIRATORY: Denies shortness of breath, cough, congestion, difficulty breathing, or wheezing. GASTROINTESTINAL: Denies nausea, vomiting, and diarrhea. Denies abdominal pain. Denies constipation. GENITOURINARY: See HPI. FEMALE GENITOURINARY: See HPI. MUSCULOSKELETAL: Denies neck and back pain. Denies joint pain or swelling. SKIN: Denies rash, itchiness, or lesions HEMATOLOGIC : Denies easy bruising or bleeding. LYMPHATIC: Denies swollen, painful, enlarged glands. NEUROLOGICAL: Denies no numbness or tingling denies weakness. Denies headache. Denies altered mental status. Denies alteration in speech. PSYCHIATRIC: Denies stress, anxiety, alteration in sleep patterns, or depression. All other systems reviewed and negative. Physical Exam - Vital signs Vitals: Temp Pulse Resp BP Pulse Ox 98.7 F 75 18 132/65 H 100 11/16/19 15:01 11/16/19 15:01 11/16/19 15:01 11/16/19 15:01 11/16/19 15:01 - Notes Notes: PHYSICAL EXAMINATION: GENERAL: Appears well, healthy, well-nourished, no acute distress. HEAD: Normocephalic, atraumatic. EYES: PERRL, conjunctiva normal, all extraocular movements intact, sclera nonicteric ENT: Moist mucous membranes. NECK: Supple, no noticeable swelling, redness, rash. Normal range of motion. LUNGS: Equal breath sounds bilaterally and clear to auscultation. No wheezes rales or rhonchi. CARDIOVASCULAR: S1-S2, regular rate, regular rhythm. Radial pulses 2+, normal. ABDOMEN: Normoactive bowel sounds. Soft, mildly tender mid lower abdomen, no guarding, no rebound tenderness, and no masses palpated. EXTREMITIES: Normal strength and range of motion, no pitting or edema. No cyanosis. NEUROLOGICAL: Moves all extremities upon command. Strength 5/5 in all extremities. PSYCH: Normal mood, normal affect. SKIN: Warm, dry. No rash, lesions, ulcerations noted. Normal skin turgor. Course - Re-evaluation Re-evalutation: 11/16/19 19:54 Patient's ultrasound shows a 14-week 1 day gestation living intrauterine . Her hemoglobin hematocrit are stable and does not meet transfusion threshold. Beta hCG is 34,000, consistent with her . Patient has a large amount of leukocytes in her urine. Patient will be started on Keflex. I will also treat her for gonorrhea and chlamydia here in the emergency department. Mother the patient states that she was tested for gonorrhea and chlamydia and was negative, I do not believe she is a good historian. I offered the patient a pelvic exam and she refused. Dirty urine will be sent to check for gonorrhea and chlamydia. Follow-up precautions were given. Verbal discharge instructions were given to the patient. They verbalized understanding. They are stable for discharge. - Vital Signs Vital signs: Temp Pulse Resp BP Pulse Ox 98.2 F 82 15 126/91 H 100 11/16/19 20:39 11/16/19 20:39 11/16/19 20:39 11/16/19 20:39 11/16/19 20:39 - Laboratory Result Diagrams: 11/16/19 17:30 Laboratory results interpreted by me: 11/16/19 11/16/19 11/16/19 17:30 17:30 17:30 Hgb 11.0 L Hct 34.6 L MCV 75 L MCH 23.6 L MCHC 31.7 L RDW 18.6 H Eos % (Auto) 10.1 H Absolute Eos (auto) 0.8 H Beta HCG, Quant 12945.00 H Ur Leukocyte Esterase LARGE H Discharge - Discharge Clinical Impression: Vaginal bleeding Urinary tract infection Qualifiers: Urinary tract infection type: acute cystitis Hematuria presence: without hematuria Qualified Code(s): N30.00 - Acute cystitis without hematuria Condition: Stable Disposition: HOME, SELF-CARE Additional Instructions: Your urine shows findings consistent with a urinary tract infection. Please take all the antibiotics as directed even if your symptoms have improved. Please follow-up with your primary care physician as needed. Return to emergency room if you develop fever >101F, persistent vomiting, become lethargic, have severe pain in your sides, or any other symptoms that are concerning to you. Follow-up with [facility] in the next week. Prescriptions: Cephalexin [Keflex] 500 mg PO BID #14 capsule Referrals: [facility] [Provider Group] - Follow up in 1 week
--- NOTE | 2019-11-16 18:32 | RADIOLOGY REPORT (SQ) ---
EXAM DESCRIPTION: U/S OB 14+ TRNABD 1GES W/O DOP COMPLETED DATE/TIME: 11/16/2019 6:20 pm REASON FOR STUDY: + preg, vag bleed COMPARISON: Ultrasound from 10/10/2019. TECHNIQUE: Limited transabdominal grayscale ultrasound for evaluation of specific requested obstetri alex parameters. LIMITATIONS: None. FINDINGS: [place] 05/15/2020. EGA 14 weeks 1 day. CERVICAL LENGTH: 3 cm Closed. DVP: 3.9 cm. FHR: 150 beats per minute. PRESENTATION: Variable. PLACENTA: Fundal ANATOMY: Not assessed OTHER: No other findings. IMPRESSION: LIMITED OBSTETRICAL ULTRASOUND WITH MEASURED PARAMETERS DELINEATED ABOVE. Trimester of : Second trimester - 13 weeks 1 day to 27 weeks 6 days. TECHNICAL DOCUMENTATION: JOB ID: [id number] [employer]- All Rights Reserved Reading location - IP/workstation name: [email or web address]
[2019-11-16] MEDS ORDERED: CEPHALEXIN 500 MG CAPSULE PO ONE (19:38)
[2019-11-16] MEDS ORDERED: CEFTRIAXONE INJ 250 MG VIAL IM ONE (19:46)
[2019-11-16] MEDS ORDERED: LIDOCAINE 1% INJ-PF (10 MG/ML) 30 ML SDV INJ ONE (19:46)
[2019-11-16] MEDS ORDERED: AZITHROMYCIN 250 MG TABLET PO ONE (19:47)
[2019-11-16 20:41] VITALS: BP 126/91
[2019-11-16 22:08] LABS: CHLAM PCR NOT DETECTED (NOT DETECT)
== END 2019-11-16 20:39 | disposition home or self-care (01) ==
LOC: ER 14:41
DX: O23.11 Infections of bladder in pregnancy, first trimester (principal); O20.9 Hemorrhage in early pregnancy, unspecified; R51 Headache; G35 Multiple sclerosis; Z3A.14 14 weeks gestation of pregnancy
CPT/HCPCS: 36415; 84702; 85025; 81001; 87491; 87591; 76805; L3984; Q0144; J3490; J0696; 87086; 96372; 96374; 99284

== ENCOUNTER 2019-12-14 18:42 | Emergency (ER) | payer MEDICAID ==
--- NOTE | 2019-12-14 20:18 | ER Document Report ---
ED Medical Screen (RME) - General Chief Complaint: Abdominal Pain Stated Complaint: ABDOMINAL PAIN Time Seen by Provider: 12/14/19 20:11 Mode of Arrival: Wheelchair Information source: Patient, Parent Notes: 19-year-old female with multiple sclerosis presents to the emergency department with complaints of abdominal pain. Patient is . G5, P2. Patient reports possibly 16 weeks to maybe 22 weeks she has not received care. Unknown when her last menstrual period was. She reports she lost her Medicaid card. Patient is also incontinent of urine but that is not new she wears depends. Denies fever vomiting diarrhea. I have greeted and performed a rapid initial assessment of this patient. A comprehensive ED assessment and evaluation of the patient, analysis of test r esults and completion of the medical decision making process will be conducted by additional ED providers. TRAVEL OUTSIDE OF THE [place] IN LAST 30 DAYS: No - Related Data Allergies/Adverse Reactions: No Known Allergies Allergy (Verified 11/16/19 15:40) Past Medical History - Social History Family history: None - Past Medical History Cardiac Medical History: Denies: Hx Coronary Artery Disease, Hx Heart Attack, Hx Hypertension Pulmonary Medical History: Reports: Hx Bronchitis Denies: Hx Asthma, Hx COPD, Hx Pneumonia Neurological Medical History: Reports: Hx Migraine - MS. Denies: Hx Cerebrovascular Accident, Hx Seizures Renal/ Medical History: Reports: Hx Pelvic Inflammatory Disease. Denies: Hx Peritoneal Dialysis Musculoskeltal Medical History: Denies Hx Arthritis, Reports Hx Multiple Sclerosis - Followed at [facility]. Currently Dr. Weinberg. Psychiatric Medical History: Reports: Hx Depression Past Surgical History: Reports: Hx Gynecologic Surgery - D&C - Immunizations Immunizations up to date: Yes Hx Diphtheria, Pertussis, Tetanus Vaccination: Yes - <5 years Physical Exam - Vital signs Vitals: Temp Pulse Resp BP Pulse Ox 97.6 F 87 16 115/66 100 12/14/19 19:27 12/14/19 19:27 12/14/19 19:27 12/14/19 19:27 12/14/19 19:27 Course - Vital Signs Vital signs: Temp Pulse Resp BP Pulse Ox 97.6 F 87 16 115/66 100 12/14/19 19:27 12/14/19 19:27 12/14/19 19:27 12/14/19 19:27 12/14/19 19:27
--- NOTE | 2019-12-14 20:50 | ER Document Report ---
ED General - General Chief Complaint: OB Problem (<20wks) Stated Complaint: ABDOMINAL PAIN Time Seen by Provider: 12/14/19 20:11 Mode of Arrival: Wheelchair TRAVEL OUTSIDE OF THE [place] IN LAST 30 DAYS: No - HPI Notes: This is a 19-year-old female 5 para 2 AB 2 currently and unsure of dates presenting with lower abdominal cramping and bloody vaginal discharge. Patient says she has been to the [facility] and was told that she was "somewhere between 15 and 19 weeks" by ultrasound. She apparently was seen previously in OB department here and based on their previous ultrasound she would currently be about 19-1/2 weeks. Started with lower abdominal cramping this afternoon and while she was in the waiting area here she had a sudden gush of pink to red fluid from the vaginal area and was rushed back to exam room. Presently not having any pain. She denies fever nausea vomiting. She denies any injury. Patient is taking vitamins. She is on no other regular medication and reports no allergies. She reports that she has a history of multiple sclerosis and was on medication for "balance problems and memory problems" prior to the but she is no longer taking this and does not know the name of her medication. - Related Data Allergies/Adverse Reactions: No Known Allergies Allergy (Verified 11/16/19 15:40) Home Medications: Past Medical History - General Information source: Patient, Parent - Social History Smoking Status: Current Every Day Smoker Family History: Reviewed & Not Pertinent, Thyroid Disfunction, Other - Anemia Patient has suicidal ideation: No Patient has homicidal ideation: No - Past Medical History Cardiac Medical History: Denies: Hx Coronary Artery Disease, Hx Heart Attack, Hx Hypertension Pulmonary Medical History: Reports: Hx Bronchitis Denies: Hx Asthma, Hx COPD, Hx Pneumonia Neurological Medical History: Reports: Hx Migraine - MS. Denies: Hx Cerebrovascular Accident, Hx Seizures Renal/ Medical History: Reports: Hx Pelvic Inflammatory Disease. Denies: Hx Peritoneal Dialysis Musculoskeletal Medical History: Denies Hx Arthritis, Reports Hx Multiple Sclerosis - Followed at [facility]. Currently Dr. Weinberg. Psychiatric Medical History: Reports: Hx Depression Past Surgical History: Reports: Hx Gynecologic Surgery - D&C - Immunizations Immunizations up to date: Yes Hx Diphtheria, Pertussis, Tetanus Vaccination: Yes - <5 years Review of Systems - Review of Systems Notes: Constitutional: Negative for fever. HENT: Negative for sore throat. Eyes: Negative for visual changes. Cardiovascular: Negative for chest pain. Respiratory: Negative for shortness of breath. Gastrointestinal: Negative for abdominal pain, vomiting or diarrhea. Genitourinary: Negative for dysuria. Musculoskeletal: Negative for back pain. Skin: Negative for rash. Neurological: Negative for headaches, weakness or numbness. 10 point ROS negative except as marked above and in HPI. Physical Exam - Vital signs Vitals: Temp Pulse Resp BP Pulse Ox 97.6 F 87 16 115/66 100 12/14/19 19:27 12/14/19 19:27 12/14/19 19:27 12/14/19 19:27 12/14/19 19:27 - Notes Notes: GENERAL: Well-developed well-nourished appearing anxious but otherwise in no acute distress. SKIN: Good turgor no rashes. HEAD: Normocephalic atraumatic. EYES: PERRLA. EOMI. Conjunctivae and sclerae clear. EARS: CANALS AND TMS CLEAR. NOSE: CLEAR. MOUTH: Moist mucosa. Good dentition. No stridor or edema. No drooling. NECK: Supple. No masses or thyromegaly. No adenopathy. Carotids 2+ without bruits. No JVD. BACK: Symmetrical without tenderness. CHEST: Respirations unlabored. Breath sounds clear and symmetrical. HEART: Regular rhythm. No murmur gallop or rub. ABDOMEN: Uterus is enlarged to about 19 weeks size. heart tones 160 identified with Doppler right lower quadrant. Minimal tenderness in right lower quadrant. No active uterine contractions. Soft without masses, organomegaly or rebound. Bowel sounds normally active. No bruits. GENITALIA: Vaginal exam shows no active bleeding. There is serosanguineous fluid on the floor adjacent to the wheelchair with the patient's transported in the room consistent with rupture membranes. EXTREMITIES: No edema. No calf tenderness. Cap refill less than 1.5 seconds. Dorsalis pedis and posterior tibial pulses 3+ and symmetrical. NEUROLOGICAL: GCS 15. Alert and oriented x3. Normal gait. Fluent speech. Cranial nerves II through XII intact. Sensorimotor and cerebellar normal. Normal tone. PSYCHIATRIC: Appropriate affect. Course - Re-evaluation Re-evalutation: 12/14/19 21:22 Patient is 19-1/2 weeks by ultrasound per radiologist. She is intermittently la now. Findings are discussed with ENGINEERING GROUP MANAGER on-call Dr. Maria Eugenia Roberts and he is requested that we send the patient immediately to labor or delivery. - Vital Signs Vital signs: Temp Pulse Resp BP Pulse Ox 97.6 F 87 16 115/66 100 12/14/19 19:27 12/14/19 19:27 12/14/19 19:27 12/14/19 19:27 12/14/19 19:27 - Laboratory Laboratory results interpreted by me: 12/14/19 20:20 Urine Blood SMALL H Ur Leukocyte Esterase TRACE H Urine Ascorbic Acid 40 H Discharge - Discharge Clinical Impression: Premature labor affecting fifth Condition: Serious Disposition: ADMITTED INPATIENT Unit Admitted: Labor and Delivery
[2019-12-14 21:14] LABS: APPEARANCE,URINE SLIGHTLY-CLOUDY; BILIRUBIN,URINE NEGATIVE (NEGATIVE); COLOR,URINE YELLOW; GLUCOSE, URINE NEGATIVE (NEGATIVE); KETONES,URINE NEGATIVE (NEGATIVE); LEUKOCYTE ESTERASE,URINE TRACE (NEGATIVE); NITRITE,URINE NEGATIVE (NEGATIVE); PROTEIN,URINE NEGATIVE (NEGATIVE); URINE SPECIFIC GRAVITY 1.016; UROBILINOGEN,URINE NEGATIVE mg/dL (<2.0)
[2019-12-14 21:31] LABS: ABSOLUTE BASOPHILS # (AUTO) 0.1 10^3/uL (0.0-0.2); ABSOLUTE EOSINOPHILS # (AUTO) 0.1 10^3/uL (0.0-0.6); ABSOLUTE LYMPHOCYTES (AUTO) 0.7 10^3/uL (0.5-4.7); ABSOLUTE MONOCYTES (AUTO) 0.5 10^3/uL (0.1-1.4); ABSOLUTE NEUT (AUTO) 11.6 10^3/uL (1.7-8.2); BASOPHILS % (AUTO) 0.4 % (0-2); EOSINOPHILS % (AUTO) 0.7 % (0-6); HEMATOCRIT 34.7 % (36.0-47.0); HEMOGLOBIN 10.9 g/dL (12.0-15.5); LYMPHOCYTES % (AUTO) 5.2 % (13-45); MEAN CORPUSCULAR HEMOGLOBIN 24.5 pg (27.0-33.4); MEAN CORPUSCULAR HGB CONC 31.5 g/dL (32.0-36.0); MEAN CORPUSCULAR VOLUME 78 fl (80-97); PLATELET COUNT 255 10^3/uL (150-450); RED BLOOD COUNT 4.45 10^6/uL (3.72-5.28); RED CELL DISTRIBUTION WIDTH 19.4 % (11.5-14.0); SEGMENTED NEUTROPHILS % (AUTO) 89.7 % (42-78); TOTAL CELLS COUNTED % (AUTO) 100 %; WHITE BLOOD COUNT 12.9 10^3/uL (4.0-10.5)
--- NOTE | 2019-12-14 21:31 | RADIOLOGY REPORT (SQ) ---
EXAM DESCRIPTION: [facility]: US FOLLOW UP CLINICAL HISTORY: 19 years Female; abd pain, ?16-22 weeks preg TECHNIQUE: Transabdominal obstetrical ultrasound was performed. COMPARISON: 11/16/2019 FINDINGS: Number of fetuses: Single position: Vertex AC: 14.69 cm, 20 weeks 0 days, 54% FL: 3.1 cm, 19 weeks 4 days, 39% HR: 165 BPM Anatomy: Grossly unremarkable on this limited exam Amniotic fluid: Markedly decreased, LVP 1.1 x 1.3 cm Cervix: Difficult to visualize, even on transvaginal images. Placenta: Fundal. No previa. IMPRESSION: 1. Single viable IUP 2. Severe oligohydramnios, a significant change since 11/16/2019 3. EGA 19 weeks 6 days, EDC 05/03/2020
[2019-12-14 21:39] VITALS: BP 93/72
[2019-12-14 21:49] LABS: ALBUMIN 3.7 g/dL (3.5-5.0); ALKALINE PHOSPHATASE 73 U/L (38-126); ANION GAP 9 (5-19); ASPARTATE AMINO TRANSFERASE 28 U/L (14-36); BILIRUBIN,DIRECT 0.3 mg/dL (0.0-0.4); BILIRUBIN,TOTAL 0.3 mg/dL (0.2-1.3); BLOOD UREA NITROGEN 10 mg/dL (7-20); CALCIUM 9.3 mg/dL (8.4-10.2); CARBON DIOXIDE 22 mmol/L (22-30); CHLORIDE 104 mmol/L (98-107); GLUCOSE 82 mg/dL (75-110); POTASSIUM 4.3 mmol/L (3.6-5.0); TOTAL PROTEIN 7.1 g/dL (6.3-8.2)
[2019-12-14] MEDS ORDERED: RINGERS SOLUTION,LACTATED 1,000 ML IV PRN (23:01)
== END 2019-12-14 21:37 | disposition home or self-care (01) ==
LOC: ER 18:42 → UNDOADMIN 21:37 → EH 21:37
DX: O60.02 Preterm labor without delivery, second trimester (principal); Z3A.19 19 weeks gestation of pregnancy; O99.332 Smoking (tobacco) complicating pregnancy, second trimester; F17.200 Nicotine dependence, unspecified, uncomplicated; Z79.899 Other long term (current) drug therapy
CPT/HCPCS: 36415; 76805; 80053; 81001; 85025; 93976; 99285

== ENCOUNTER 2019-12-14 22:23 | Inpatient (IN) | payer MEDICAID ==
--- NOTE | 2019-12-14 22:57 | Admission Physical ---
Datetime Report Generated by CPN: 12/14/2019 22:57 CURRENT ADMISSION Chief Complaint: Vaginal Bleeding Indication for Induction: Not Applicable Admit Impression : , Intrauterine Admit Impression- Other: Bleeding with oligo vs PPROM Admit Plan: Admit to Unit ALLERGIES Medication Allergies: No Known Allergies (11/16/2019) OBSTETRICAL HISTORY EDC: 05/03/2020 00:00 PHYSICAL EXAM General: Normal HEENT: Normal Neurologic: Normal Thyroid: Normal Heart: Normal Lungs: Normal Breast: Deferred Back: Normal Abdomen: Normal Genitourinary Exam: Normal Extremities: Normal DTRs: Normal Pelvic Type: Adequate Physical Exam Comments: Usure if membranes are ruptured or not. She has bleeding and cannot tell if fluid is leaking as well. VAGINAL EXAM Dilatation: 0 FETUS A EGA: 19.6 FHR- Baseline: 160 Admit Comment: Admit for observation. MBT is O pos. Will give IV fluids and repeat the sono again tomorrow. INFORMED CONSENT Signature: with User ID: [email or web address]
[2019-12-14] MEDS ORDERED: RINGERS SOLUTION,LACTATED 1,000 ML IV PRN (23:09)
[2019-12-15] MEDS ORDERED: OXYCODONE-ACETAMINOPHEN 5-325 MG TABLET PO ONE (01:01)
[2019-12-15] MEDS ORDERED: OXYCODONE-ACETAMINOPHEN 5-325 MG TABLET ONE (01:03)
[2019-12-15] MEDS ORDERED: ZOLPIDEM TARTRATE 5 MG TABLET PO ONE (02:01)
[2019-12-15] MEDS ORDERED: ZOLPIDEM TARTRATE 5 MG TABLET ONE (02:02)
[2019-12-15] MEDS ORDERED: MISOPROSTOL 0.2 MG TABLET ONE (07:50)
[2019-12-15] MEDS ORDERED: OXYTOCIN/NORMAL SALINE 20 UNIT/1,000 ML RTUINJ ONE (07:50)
[2019-12-15] MEDS ORDERED: BENZOCAINE/MENTHOL AEROSOL SPRAY 56 ML TOP PRN (08:14)
[2019-12-15] MEDS ORDERED: ACETAMINOPHEN WITH CODEINE #3 TABLET PO PRN (08:14)
[2019-12-15] MEDS ORDERED: DIPH/PERTUSS(ACELL)/TETANUS VAC/PF 0.5 ML SYR (>=10YO) IM PRN (08:14)
[2019-12-15] MEDS ORDERED: MEASLES,MUMPS&RUBELLA VACC/PF 0.5 ML VIAL SUBCUT PRN (08:14)
[2019-12-15] MEDS ORDERED: ZOLPIDEM TARTRATE 5 MG TABLET PO PRN (08:14)
[2019-12-15] MEDS ORDERED: OXYTOCIN/NORMAL SALINE 20 UNIT/1,000 ML RTUINJ IV PRN (08:14)
[2019-12-15] MEDS ORDERED: DIBUCAINE 1% OINTMENT 28 GM TP PRN (08:14)
[2019-12-15] MEDS ORDERED: IBUPROFEN 800 MG TABLET PO SCH (08:30)
[2019-12-15] MEDS ORDERED: SENNOSIDES/DOCUSATE 8.6-50 MG 1 EACH TABLET PO SCH (10:00)
[2019-12-15] MEDS ORDERED: DOCUSATE SODIUM 100 MG CAPSULE PO SCH (10:00)
[2019-12-15] MEDS ORDERED: FERROUS SULFATE 325 MG TABLET PO SCH (10:00)
[2019-12-15] MEDS ORDERED: PRENATAL VITAMIN W DHA CAPSULE PO SCH (10:00)
[2019-12-15 11:26] LABS: URINE AMPHETAMINES SCREEN NEGATIVE; URINE BARBITURATES SCREEN NEGATIVE; URINE BENZODIAZEPINES SCREEN NEGATIVE; URINE COCAINE SCREEN NEGATIVE; URINE MARIJUANA (THC) SCREEN NEGATIVE; URINE METHADONE SCREEN NEGATIVE; URINE PHENCYCLIDINE SCREEN NEGATIVE
[2019-12-15] MEDS ORDERED: MEDROXYPROGESTERONE ACET INJ 150 MG/1 ML VIAL IM ONE (12:03)
[2019-12-15 12:42] LABS: CHLAM PCR NOT DETECTED (NOT DETECT)
--- NOTE | 2019-12-15 13:29 | PDOC DISCHARGE SUMMARY ---
Impression - Admit/DC Date/PCP Admission Date/Primary Care Provider: 12/14/19 23:10 JENI VELEZ MD Discharge Date: 12/15/19 - Delivered 19 week NV male today. Pt doing well since delivery w/ minimal bleeding. - Discharge Diagnosis (1) 19 weeks gestation of Is this a current diagnosis for this admission?: Yes (2) IUFD at less than 20 weeks of gestation Is this a current diagnosis for this admission?: Yes (3) Premature labor affecting fifth Is this a current diagnosis for this admission?: Yes (4) Anxiety Is this a current diagnosis for this admission?: Yes (5) Bipolar 1 disorder Is this a current diagnosis for this admission?: Yes - Additional Information Resuscitation Status: Full Code Discharge Diet: As Tolerated, Regular Discharge Activity: Activity As Tolerated, No Lifting Over 10 Pounds, Pelvic Rest Referrals: JENI VELEZ MD [Primary Care Provider] - Home Medications: Ibuprofen [Motrin 800 mg Tablet] 800 mg PO Q8 tablet 12/15/19 HPI Reason(s) for Admission: Labor Intrapartum Procedure(s): Spontaneous Vaginal Delivery Intrapartum Procedure Note: 19 wk IUFD Results Laboratory Results: Amniotic Ferning Test FERN PATTERN ABSENT (ABSENT) 12/14/19 22:32 Urine Opiates Screen NEGATIVE 12/15/19 10:30 Urine Methadone Screen NEGATIVE 12/15/19 10:30 Ur Barbiturates Screen NEGATIVE 12/15/19 10:30 Ur Phencyclidine Scrn NEGATIVE 12/15/19 10:30 Ur Amphetamines Screen NEGATIVE 12/15/19 10:30 U Benzodiazepines Scrn NEGATIVE 12/15/19 10:30 Urine Cocaine Screen NEGATIVE 12/15/19 10:30 U Marijuana (THC) Screen NEGATIVE 12/15/19 10:30 Chlamydia DNA (PCR) NOT DETECTED (NOT DETECT) 12/15/19 10:30 N.gonorrhoeae DNA (PCR) NOT DETECTED (NOT DETECT) 12/15/19 10:30 Blood Type O POSITIVE 12/15/19 09:00 Antibody Screen NEGATIVE 12/15/19 09:00 Plan Health Concerns: Concerns for PP depression, pt desires Depo Provera prior to discharge home today Plan of Treatment: Pt to f/up with [facility] in one week Time Spent: Greater than 30 Minutes
[2019-12-15 13:45] VITALS: BP 120/58
--- NOTE | 2019-12-15 14:48 | Delivery Summary ---
Del Sum A-C Datetime Report Generated by CPN: 12/15/2019 14:48 DELIVERY PERSONNEL DELIVERY PERSONNEL: [id number] MATERNAL INFORMATION Provider Comments: Pt presented to L_D observation status last night c/o vaginal cramping and bleeding. Evaluated overnight. at 19 wks based on a 9 wk 6 day ultrasound [facility]. Giving an EDC of 05/10/20. PNC at the [facility], first visit on Dec 05, 2019. Hx of Multiple Sclerosis. Pt got up to void on the labor and delivery unit, while standing up after voiding, the 19 wk NVI spontaneously delivered. This occured at 0745 with the RN in attendance. Pt was placed back into the bed. The baby was not making any effort to breathe. Cord was cut. Apgars 0,0. Placenta then delivered spontaneously at 0828. FF at u/u with minimal bleeding. Will send placenta to path. Attending MD is Dr Herrera and he is aware of pts status. EBL less than 50 ml. Pt has her mother and other family in the room with her for support, they are holding the baby LABOR SUMMARY EDC: 05/10/2020 00:00 No. Babies in Womb: 1 STAGES OF LABOR Stage 3 hr: 0 Stage 3 min: 43 VAGINAL DELIVERY Episiotomy: None Laceration #1: None Laceration Repair: Not Applicable BABY A INFORMATION Delivery Date/Time: 12/15/2019 07:45 Method of Delivery: Vaginal Born in Route : No : N/A Forceps: N/A Vacuum Extraction: N/A Shoulder Dystocia : No PRESENTATION/POSITION BABY A Presentation: unable to determine Cephalic Presentation: n/a Vertex Position: n/a Breech Presentation: N/A PLACENTA INFORMATION BABY A Placenta Delivery Time : 12/15/2019 08:28 Placenta Method of Delivery: Spontaneous Placenta Status: Delivered SCORES BABY A Heart Rate 1 min: Absent Resp Effort 1 min: Absent Reflex Irritability 1 min: No Response Muscle Tone 1 min: Flaccid Color 1 min: Blue/Pale Resuscitation Effort 1 min: N/A SCORE 1 MIN: 0 Heart Rate 5 min: Absent Resp Effort 5 min: Absent Reflex Irritability 5 min: No Response Muscle Tone 5 min: Flaccid Color 5 min: Blue/Pale Resuscitation Effort 5 min: N/A SCORE 5 MIN: 0 Heart Rate 10 min: Absent Resp Effort 10 min: Absent Reflex Irritability 10 min: No Response Muscle Tone 10 min: Flaccid Color 10 min: Blue/Pale Resuscitation Effort 10 min: N/A SCORE 10 MIN: 0 INFANT INFORMATION BABY A Gestational Age at Delivery: 19.0 Gestational Status: - <34 Weeks Outcome : Stillborn Infant Sex: Male WEIGHT/LENGTH BABY A Birthweight (gm): 275 Weight (lb): 0 Weight (oz): 10 CORD INFORMATION BABY A Infant Suction: None ASSESSMENT BABY A Infant Complications: Other Infant Complications- Other: 20 weeks secondary to extreme prematurity Physical Findings- Other: no signs of life Transferred To: Remains with Mother SIGNATURES Assignment: En Herrera MD Signature: with User ID: Modesta : with User ID: [email or web address]
== END 2019-12-15 14:30 | disposition home or self-care (01) | DRG 770 ==
LOC: LC 22:23 → LR 23:10 → OBSVTOIN 23:10 → 2S 12-15 01:38 → LR 12-15 01:39 → OBSVTOIN 12-15 07:48 → INTOOBSV 12-15 07:48
PROVIDERS: ADMIT Obstetrics & Gynecology Gynecology; ATTEND Obstetrics & Gynecology Gynecology
PROC: 10D17ZZ Extraction of Products of Conception, Retained, Via Natural or Artificial Opening (ICD-10-PCS; principal; 2019-12-15)
DX: O02.1 Missed abortion (principal); O41.02X0 Oligohydramnios, second trimester, not applicable or unspecified; O99.342 Other mental disorders complicating pregnancy, second trimester; F31.9 Bipolar disorder, unspecified; F41.9 Anxiety disorder, unspecified; Z3A.19 19 weeks gestation of pregnancy
CPT/HCPCS: 36415; 80307; 86592; 86850; 86900; 86901; 87491; 87591; 88305; 88307; J1050; J2590; Q0114

== ENCOUNTER 2020-03-21 18:43 | Emergency (ER) | payer MEDICAID ==
[2020-03-21] MEDS ORDERED: IBUPROFEN 600 MG TABLET PO ONE (19:59)
--- NOTE | 2020-03-21 20:03 | ER Document Report ---
HPI - HPI Patient complains to provider of: neck pain to left neck Time Seen by Provider: 03/21/20 19:57 Onset: This afternoon Onset/Duration: Sudden, Waxing and waning Quality of pain: Achy Severity: Mild Pain Level: 1 Context: 19-year-old female presented to ED for complaint of pain in the left side of her neck. She states she was walking across the street her grandmother's house when examined he started hurting. She states it does hurt to palpation. She states she had some abdominal pain last night and is been coming and going but she does not have any pain at this time. Bowel sounds are active present in all 4 quadrants. She does not have any tenderness to palpation. Associated Symptoms: Other - 7 neck pain when she was walking across the road to her grandmother's house Exacerbated by: Movement Relieved by: Denies Similar symptoms previously: Yes Recently seen / treated by doctor: No - ROS ROS below otherwise negative: Yes - CONSTITUTIONAL Constitutional: DENIES: Fever, Chills - EENT EENT: DENIES: Sore Throat, Ear Pain, Nasal Drainage-Clear, Nasal Drainage- Purulent, Congestion, Eye problems - NEURO Neurology: DENIES: Headache, Weakness, Vision blurred, Dizzinesss / Vertigo - CARDIOVASCULAR Cardiovascular: DENIES: Chest pain - RESPIRATORY Respiratory: DENIES: Trouble Breathing, Coughing - GASTROINTESTINAL Gastrointestinal: REPORTS: Abdominal Pain - States she had abdominal pain. DENIES: Nausea, Patient vomiting, Diarrhea, Constipation, Black / Bloody Stools - URINARY Urinary: DENIES: Dysuria, Urgency, Frequency - REPRODUCTIVE Reproductive: DENIES: :, Postmenopausal, Abnormal bleeding / discharge - MUSCULOSKELETAL Musculoskeletal: REPORTS: Neck Pain - Pain to the left side of her neck. DENIES: Extremity pain, Back Pain, Swelling - DERM Skin Color: Normal Skin Problems: None Past Medical History - General Information source: Patient - Social History Smoking Status: Never Smoker Frequency of alcohol use: None Drug Abuse: None Lives with: Family Family History: Reviewed & Not Pertinent, Thyroid Disfunction, Other - Anemia Patient has suicidal ideation: No Patient has homicidal ideation: No - Past Medical History Cardiac Medical History: Reports: None Pulmonary Medical History: Reports: Hx Bronchitis EENT Medical History: Reports: None Neurological Medical History: Reports: Hx Migraine - MS Endocrine Medical History: Reports: None Renal/ Medical History: Reports: None, Hx Pelvic Inflammatory Disease. Denies: Hx Peritoneal Dialysis Malignancy Medical History: Reports: None GI Medical History: Reports: None Musculoskeletal Medical History: Reports Hx Multiple Sclerosis - Followed at [facility]. Currently Dr. Weinberg. Skin Medical History: Reports None Psychiatric Medical History: Reports: Hx Depression Traumatic Medical History: Reports: None Infectious Medical History: Reports: None Past Surgical History: Reports: Hx Dilation and Curettage - Immunizations Immunizations up to date: Yes Hx Diphtheria, Pertussis, Tetanus Vaccination: Yes - <5 years Vertical Provider Document - CONSTITUTIONAL Agree With Documented VS: Yes Exam Limitations: No Limitations General Appearance: WD/WN, No Apparent Distress - INFECTION CONTROL TRAVEL OUTSIDE OF THE [place] IN LAST 30 DAYS: No - HEENT HEENT: Atraumatic, Normal ENT Exam, Normocephalic, PERRLA - NECK Neck: Other - Pains of pain to the left side of her neck tenderness has full range of motion to her neck. negative: Normal Inspection, Supple, Thyroid Normal, Lymphadenopathy-Left, Lymphadenopathy-Right - RESPIRATORY Respiratory: Breath Sounds Normal, No Respiratory Distress - CARDIOVASCULAR Cardiovascular: Regular Rate Course - Vital Signs Vital signs: Temp Pulse Resp BP Pulse Ox 98.2 F 97 16 109/81 100 03/21/20 19:47 03/21/20 19:18 03/21/20 19:18 03/21/20 19:18 03/21/20 19:18 Discharge - Discharge Clinical Impression: Neck pain on left side Condition: Stable Disposition: HOME, SELF-CARE Additional Instructions: You were seen today for pain in the left side of your neck. You state the pain started suddenly when you walked across the street to your grandmother's house. You state you had pain in your abdomen last night and is been intermittent today but you have no pain or tenderness at this time. You have denied any nausea vomiting or diarrhea. Ibuprofen Ibuprofen is an excellent, safe drug for pain control. In addition, it has potent antiinflammatory effects which are beneficial, especially in the treatment of injuries, arthritis, or tendonitis. It's best to take ibuprofen with food. Persons with ulcer disease or allergy to aspirin should notify their physician of this before taking ibuprofen. Take the medication exactly as prescribed. Don't take additional doses unless instructed to do so by your doctor. If you develop wheezing, shortness of breath, hives, faintness, stomach pain, vomiting, or dark black stools, return for re-evaluation at once. FOLLOW-UP CARE: If you have been referred to a physician for follow-up care, call the physicians office for an appointment as you were instructed or within the next two days. If you experience worsening or a significant change in your symptoms, notify the physician immediately or return to the Emergency Department at any time for re-evaluation. Referrals: TRAVIS MATA CNM [Primary Care Provider] - Follow up in 3-5 days
[2020-03-21 22:26] VITALS: BP 110/82
== END 2020-03-21 20:06 | disposition home or self-care (01) ==
LOC: ER 18:43
DX: M54.2 Cervicalgia (principal); R10.9 Unspecified abdominal pain
CPT/HCPCS: 99283; J3490

== ENCOUNTER 2020-06-05 08:07 | Emergency (ER) | payer MEDICAID ==
[2020-06-05 08:17] VITALS: BP 112/67
[2020-06-05] MEDS ORDERED: POLYMYXIN B SULFATE/TMP OPH SOLN (10 ML/ER DISP) OU ONE (09:33)
--- NOTE | 2020-06-05 10:13 | ER Document Report ---
Entered by ANA MARIA LOPEZ SCRIBE 06/05/20 0919 Acting as scribe for:LEAH SIMENTAL MD ED Eye Complaint - General Chief Complaint: Drainage from Eye Stated Complaint: EYE SWELLING Time Seen by Provider: 06/05/20 09:15 Mode of Arrival: Ambulatory Information source: Patient Notes: This 19 year old female patient presents to the emergency department today with complaints of bilateral eye swelling, redness, and irritation. Patient states she first noticed that her eyes were swollen and itchy at around 2:00 AM this morning. Patient mentions that her eyes sometimes itch. TRAVEL OUTSIDE OF THE [place] IN LAST 30 DAYS: No - Related Data Allergies/Adverse Reactions: No Known Allergies Allergy (Verified 06/05/20 08:50) Past Medical History - General Information source: Patient - Social History Smoking Status: Current Every Day Smoker Cigarette use (# per day): Yes Chew tobacco use (# tins/day): No Smoking Education Provided: No Frequency of alcohol use: None Drug Abuse: None Lives with: Family Family History: Reviewed & Not Pertinent, Thyroid Disfunction, Other - Anemia Patient has homicidal ideation: No Pulmonary Medical History: Reports: Hx Bronchitis Neurological Medical History: Reports: Hx Migraine - MS Renal/ Medical History: Reports: Hx Pelvic Inflammatory Disease Musculoskeletal Medical History: Reports Hx Multiple Sclerosis - Followed at [facility]. Currently Dr. Weinberg. Psychiatric Medical History: Reports: Hx Depression Past Surgical History: Reports: Hx Dilation and Curettage - Immunizations Immunizations up to date: Yes Hx Diphtheria, Pertussis, Tetanus Vaccination: Yes - <5 years Review of Systems - Review of Systems Constitutional: No symptoms reported EENT: See HPI, Eye pain, Eye discharge Cardiovascular: No symptoms reported Respiratory: No symptoms reported Gastrointestinal: No symptoms reported Genitourinary: No symptoms reported Female Genitourinary: No symptoms reported Musculoskeletal: No symptoms reported Skin: No symptoms reported Hematologic/Lymphatic: No symptoms reported Neurological/Psychological: No symptoms reported -: Yes All other systems reviewed and negative Physical Exam - Vital signs Vitals: Temp Pulse Resp BP Pulse Ox 98.5 F 76 18 112/67 100 06/05/20 08:16 06/05/20 08:16 06/05/20 08:16 06/05/20 08:16 06/05/20 08:16 - Notes Notes: Physical Exam: General: Alert, appears well. HEENT: Normocephalic. Atraumatic. PERRL. Extraocular movements intact. Oropharynx clear. Right upper and lower eyelid edema, scleral injection, the eye is somewhat crusted over and the patient states that it itches. Left eye is similar but much less involved. Neck: Supple. Non-tender. Respiratory: No respiratory distress. Clear and equal breath sounds bilaterally. Cardiovascular: Regular rate and rhythm. Abdominal: Normal Inspection. Non-tender. No distension. Normal Bowel Sounds. Back: No gross abnormalities. Extremities: Moves all four extremities. Upper extremities: Normal inspection. Normal ROM. Lower extremities: Normal inspection. No edema. Normal ROM. Neurological: Normal cognition. AAOx4. Normal speech. Psychological: Normal affect. Normal Mood. Skin: Warm. Dry. Normal color. Course - Vital Signs Vital signs: Temp Pulse Resp BP Pulse Ox 98.5 F 76 18 112/67 100 06/05/20 08:51 06/05/20 08:16 06/05/20 08:16 06/05/20 08:16 06/05/20 08:16 Discharge - Discharge Clinical Impression: Conjunctivitis Qualifiers: Conjunctivitis type: acute Acute conjunctivitis type: unspecified Laterality: bilateral Qualified Code(s): H10.33 - Unspecified acute conjunctivitis, bilateral Condition: Stable Disposition: HOME, SELF-CARE Additional Instructions: Conjunctivitis You have an infection in your eye, commonly known as "pink eye." Conjunctivitis causes redness, mild discomfort, itching, and mattering on the eyelids. It is very contagious, so you must be careful to wash your hands after touching your face so you don't pass the infection on to others. Conjunctivitis is caused by both viruses and bacteria. It usually responds quickly to treatment with antibiotic drops. These should be placed in the eye as prescribed (usually every three to four hours while you're awake). If you wear contact lenses, don't put them in your eyes until the infection is cleared and you are no longer using the drops (unless your doctor advises you otherwise). Should you develop increasing eye pain, severe swelling, decreased vision, or fail to improve as expected, please return for re-examination. Use the antibiotic eyedrops that were dispensed. Place 1 drop in each eye every 3 hours while awake for the next 7 to 10 days. Use warm compresses on your eyes. Follow-up with your primary care provider if not improving over the next few days. RETURN TO THE EMERGENCY ROOM IF ANY NEW OR WORSENING SYMPTOMS. I personally performed the services described in the documentation, reviewed and edited the documentation which was dictated to the scribe in my presence, and it accurately records my words and actions.
== END 2020-06-05 09:52 | disposition home or self-care (01) ==
LOC: ER 08:07
DX: H10.33 Unspecified acute conjunctivitis, bilateral (principal); H57.89 Other specified disorders of eye and adnexa; F17.210 Nicotine dependence, cigarettes, uncomplicated
CPT/HCPCS: 99282; J3490

== ENCOUNTER 2020-06-09 18:50 | Emergency (ER) | payer MEDICAID ==
--- NOTE | 2020-06-09 20:16 | ER Document Report ---
ED Headache - General Chief Complaint: Headache Stated Complaint: HEADACHE,WEAKNESS Notes: Patient is a 19-year-old -[place] female with a history of MS with "br ain lesions" who is not currently on any treatment who presents to the emergency department with a chief complaint of headache and generalized weakness. The patient states that she was helping her grandmother today who has diabetes when she suddenly began to felt weak and laid down on her grandmother's couch. She states that she decided it was time to go home, she lives across the [address] with her father. She states she was able to walk across the street and by the time she got to her house she developed a headache that starts at the top of the scalp and radiates down the occiput. She states it is a pounding sensation. She is taken no medications. Denies any specific palliative or provocative factors. Has been constant since onset. Reports associated generalized weakness. Denies any numbness, tingling or focal weakness. Denies any chest pain or shortness of breath. Denies any abdominal pain, vomiting or diarrhea. Denies any fever. No recent travel or known sick contacts. No known exposures to COVID-19. TRAVEL OUTSIDE OF THE [place] IN LAST 30 DAYS: No - Related Data Allergies/Adverse Reactions: No Known Allergies Allergy (Verified 06/05/20 08:50) Past Medical History - Social History Smoking Status: Never Smoker Family History: Reviewed & Not Pertinent, Thyroid Disfunction, Other - Anemia Pulmonary Medical History: Reports: Hx Bronchitis Neurological Medical History: Reports: Hx Migraine - MS Renal/ Medical History: Reports: Hx Pelvic Inflammatory Disease. Denies: Hx Peritoneal Dialysis Musculoskeletal Medical History: Reports Hx Multiple Sclerosis - Followed at [facility]. Currently Dr. Weinberg. Psychiatric Medical History: Reports: Hx Depression Past Surgical History: Reports: Hx Dilation and Curettage, Hx Oral Surgery - Immunizations Immunizations up to date: Yes Hx Diphtheria, Pertussis, Tetanus Vaccination: Yes - <5 years Review of Systems - Review of Systems Constitutional: denies: Fever EENT: denies: Throat pain Cardiovascular: denies: Chest pain Respiratory: denies: Short of breath Gastrointestinal: denies: Abdominal pain Genitourinary: denies: Dysuria Female Genitourinary: denies: Vaginal discharge Musculoskeletal: denies: Back pain Skin: denies: Change in color Hematologic/Lymphatic: denies: Easy bleeding Neurological/Psychological: Weakness, Headaches Physical Exam - Vital signs Vitals: Temp Pulse Resp BP Pulse Ox 98.3 F 88 16 113/74 99 06/09/20 19:02 06/09/20 19:02 06/09/20 19:02 06/09/20 19:02 06/09/20 19:02 - General General appearance: Appears well, Alert In distress: None - HEENT Head: Normocephalic, Atraumatic Eyes: Normal Conjunctiva: Normal Extraocular movements intact: Yes Eyelashes: Normal Pupils: PERRL Ears: Normal External canal: Normal Tympanic membrane: Normal Nasal: Normal Mouth/Lips: Normal Pharynx: Normal Neck: Normal, Supple. No: Meningismus - Respiratory Respiratory status: No respiratory distress Chest status: Nontender Breath sounds: Normal Chest palpation: Normal - Cardiovascular Rhythm: Regular Heart sounds: Normal auscultation - Extremities General upper extremity: Normal inspection, Nontender, Normal color, Normal ROM, Normal temperature General lower extremity: Normal inspection, Nontender, Normal color, Normal ROM, Normal temperature, Normal weight bearing. No: Quincy's sign - Neurological Neuro grossly intact: Yes Cognition: Normal Orientation: AAOx4 [place] Coma Scale Eye Opening: Spontaneous Analy Coma Scale Verbal: Oriented [place] Coma Scale Motor: Obeys Commands [place] Coma Scale Total: 15 Speech: Normal Cranial nerves: Normal Cerebellar coordination: Normal Motor strength normal: LUE, RUE, LLE, RLE Sensory: Normal - Psychological Associated symptoms: Normal affect, Normal mood - Skin Skin Temperature: Warm Skin Moisture: Dry Skin Color: Normal Course - Re-evaluation Re-evalutation: 06/09/20 21:59 Patient resting comfortably in the room at this time upon reevaluation, talking on the phone. She is in no acute distress. Her lab work is largely unremarkable. Her urinalysis is significant for a hemorrhagic cystitis. Rocephin IM given here, sent home on Keflex. Counseled her regarding the importance of outpatient follow-up, push clear fluids and rest. Advise she return here or any ER immediately with any new, persistent or worsening symptoms. She verbalized understood and agreed. - Vital Signs Vital signs: Temp Pulse Resp BP Pulse Ox 98.3 F 88 16 113/74 99 06/09/20 19:02 06/09/20 19:02 06/09/20 19:02 06/09/20 19:02 06/09/20 19:02 - Laboratory Result Diagrams: 06/09/20 20:45 06/09/20 20:45 Laboratory results interpreted by me: 06/09/20 06/09/20 06/09/20 20:45 20:45 21:13 MCV 77 L MCH 24.9 L RDW 16.1 H Eos % (Auto) 12.5 H Absolute Eos (auto) 0.7 H Chloride 108 H Urine Protein 30 H Urine Ketones TRACE H Leukocyte Esterase Rfl LARGE H Urine Ascorbic Acid 40 H Discharge - Discharge Clinical Impression: UTI (urinary tract infection) Qualifiers: Urinary tract infection type: site unspecified Hematuria presence: with hematuria Qualified Code(s): N39.0 - Urinary tract infection, site not specified; R31.9 - Hematuria, unspecified Condition: Stable Disposition: HOME, SELF-CARE Instructions: Urinary Tract Infection ([facility]) Additional Instructions: Follow-up with your regular doctor in 2 to 3 days for reevaluation. Return here or any ER immediately with any new, persistent or worsening symptoms. Prescriptions: Cephalexin Monohydrate [Keflex 500 mg Capsule] 500 mg PO Q6H #40 capsule
[2020-06-09 20:54] LABS: ABSOLUTE BASOPHILS # (AUTO) 0.1 10^3/uL (0.0-0.2); ABSOLUTE EOSINOPHILS # (AUTO) 0.7 10^3/uL (0.0-0.6); ABSOLUTE LYMPHOCYTES (AUTO) 1.7 10^3/uL (0.5-4.7); ABSOLUTE MONOCYTES (AUTO) 0.4 10^3/uL (0.1-1.4); ABSOLUTE NEUT (AUTO) 2.9 10^3/uL (1.7-8.2); BASOPHILS % (AUTO) 1.4 % (0-2); EOSINOPHILS % (AUTO) 12.5 % (0-6); HEMATOCRIT 39.3 % (36.0-47.0); HEMOGLOBIN 12.7 g/dL (12.0-15.5); LYMPHOCYTES % (AUTO) 29.8 % (13-45); MEAN CORPUSCULAR HEMOGLOBIN 24.9 pg (27.0-33.4); MEAN CORPUSCULAR HGB CONC 32.4 g/dL (32.0-36.0); MEAN CORPUSCULAR VOLUME 77 fl (80-97); PLATELET COUNT 291 10^3/uL (150-450); RED CELL DISTRIBUTION WIDTH 16.1 % (11.5-14.0); SEGMENTED NEUTROPHILS % (AUTO) 49.3 % (42-78); TOTAL CELLS COUNTED % (AUTO) 100 %; WHITE BLOOD COUNT 5.8 10^3/uL (4.0-10.5)
[2020-06-09 21:13] LABS: ALBUMIN 4.7 g/dL (3.5-5.0); ALKALINE PHOSPHATASE 69 U/L (38-126); ANION GAP 7 (5-19); ASPARTATE AMINO TRANSFERASE 28 U/L (14-36); BILIRUBIN,TOTAL 0.4 mg/dL (0.2-1.3); BLOOD UREA NITROGEN 14 mg/dL (7-20); CARBON DIOXIDE 24 mmol/L (22-30); CHLORIDE 108 mmol/L (98-107); GLUCOSE 87 mg/dL (75-110); POTASSIUM 3.9 mmol/L (3.6-5.0); TOTAL PROTEIN 8.2 g/dL (6.3-8.2)
[2020-06-09 21:38] LABS: APPEARANCE,URINE SLIGHTLY-CLOUDY; BILIRUBIN,URINE NEGATIVE (NEGATIVE); COLOR,URINE YELLOW; GLUCOSE, URINE NEGATIVE (NEGATIVE); KETONES,URINE TRACE mg/dL (NEGATIVE); PROTEIN,URINE 30 mg/dL (NEGATIVE); URINE SPECIFIC GRAVITY 1.026; UROBILINOGEN,URINE NEGATIVE mg/dL (<2.0)
[2020-06-09] MEDS ORDERED: CEFTRIAXONE INJ 1000 MG VIAL IM ONE (21:56)
--- NOTE | 2020-06-09 22:08 | RADIOLOGY REPORT (SQ) ---
EXAM DESCRIPTION: CT HEAD WITHOUT IV CONTRAST COMPLETED DATE/TME: 06/09/2020 20:13 CLINICAL HISTORY: 19 years, Female, JAC[place]BS[place], h/o MS COMPARISON: 11/06/2017 CT TECHNIQUE: 259 Images stored on PACS. All CT scanners at this facility use dose modulation, iterative reconstruction, and/or weight based dosing when appropriate to reduce radiation dose to as low as reasonably achievable (ALARA). [facility]: Dose Right [facility]: CareDose [facility]: Dose Right [facility]: Teradose 4D [facility]: [employer] LIMITATIONS: None. FINDINGS: The globes are intact. The paranasal sinuses and mastoid air cells are well aerated. No displaced or depressed skull fracture. No intra or extra-axial hemorrhage. CT is limited for evaluation of acute infarct. No CT evidence for large or territorial acute infarct. Similar to the prior exam, there are hypodensities in the periventricular and subcortical white matter, given patient age a demyelinating process is considered. No mass or midline shift IMPRESSION: Stable abnormal white matter hypodensities, concerning for demyelinating process. No new or acute findings TECHNICAL DOCUMENTATION: Quality ID # [id number]: Final reports with documentation of one or more dose reduction techniques (e.g., Automated exposure control, adjustment of the mA and/or kV according to patient size, use of iterative reconstruction technique) copyright 2011 [employer]- All Rights Reserved
[2020-06-09] MEDS ORDERED: LIDOCAINE 1% INJ-PF (10 MG/ML) 30 ML SDV ONE (22:12)
[2020-06-09 22:45] VITALS: BP 115/71
== END 2020-06-09 22:42 | disposition home or self-care (01) ==
LOC: ER 18:50
DX: N39.0 Urinary tract infection, site not specified (principal); R31.9 Hematuria, unspecified; R51 Headache; R53.1 Weakness; G35 Multiple sclerosis
CPT/HCPCS: 99284; 96372; 36415; 87086; 84703; 85025; 80053; 81001; 70450; J3490; J0696

== ENCOUNTER 2020-10-06 11:54 | Emergency (ER) | payer MEDICAID ==
--- NOTE | 2020-10-06 13:15 | ER Document Report ---
ED Medical Screen (RME) - General Chief Complaint: Vaginal Itching Stated Complaint: RASH Time Seen by Provider: 10/06/20 12:59 TRAVEL OUTSIDE OF THE [place] IN LAST 30 DAYS: No - HPI Notes: Patient is a 20-year-old female with no medical history who presents with vaginal itching and redness for the past 2 days. She denies vaginal discharge, vaginal bleeding, pelvic pain, abdominal pain, nausea, vomiting, and fever. She denies recent antibiotic use as well as multiple sexual partners. Her last menstrual period ended on 10/03/2020. She denies taking using any medication for relief. - Related Data Allergies/Adverse Reactions: No Known Allergies Allergy (Verified 06/05/20 08:50) Past Medical History - Social History Chew tobacco use (# tins/day): No Frequency of alcohol use: None Drug Abuse: Marijuana Family history: None Pulmonary Medical History: Reports: Hx Bronchitis Neurological Medical History: Reports: Hx Migraine - MS Renal/ Medical History: Reports: Hx Pelvic Inflammatory Disease. Denies: Hx Peritoneal Dialysis Musculoskeltal Medical History: Reports Hx Multiple Sclerosis - Followed at [facility]. Currently Dr. Weinberg. Psychiatric Medical History: Reports: Hx Depression Past Surgical History: Reports: Hx Dilation and Curettage, Hx Oral Surgery - Immunizations Immunizations up to date: Yes Hx Diphtheria, Pertussis, Tetanus Vaccination: Yes - <5 years Physical Exam - Vital signs Vitals: Temp Pulse Resp BP Pulse Ox 97.9 F 92 14 108/54 L 99 10/06/20 11:58 10/06/20 11:58 10/06/20 11:58 10/06/20 11:58 10/06/20 11:58 - Respiratory Respiratory status: No respiratory distress Breath sounds: Normal - Cardiovascular Rhythm: Regular Heart sounds: Normal auscultation - Abdominal Distension: No distension Bowel sounds: Normal Tenderness: Nontender Course - Re-evaluation Re-evalutation: I have greeted and performed a rapid initial assessment of this patient. A comprehensive ED assessment and evaluation of the patient, analysis of test results and completion of medical decision making process will be conducted by an additional ED providers. - Vital Signs Vital signs: Temp Pulse Resp BP Pulse Ox 97.9 F 92 14 108/54 L 99 10/06/20 11:58 10/06/20 11:58 10/06/20 11:58 10/06/20 11:58 10/06/20 11:58
[2020-10-06] MEDS ORDERED: CETIRIZINE 10 MG TABLET PO ONE (13:38)
--- NOTE | 2020-10-06 14:33 | ER Document Report ---
ED GI/ - General Chief Complaint: Vaginal Itching Stated Complaint: RASH Time Seen by Provider: 10/06/20 12:59 [facility] - Follow up as needed Notes: Patient is a 20-year-old female who presents to the emergency department with a chief complaint of vaginal itching on the outside of her vagina. Patient states that her symptoms started 2 days ago. Denies any fever, body aches, or chills. Patient states that she is unsure as to whether or not she is having any vaginal discharge. TRAVEL OUTSIDE OF THE [place] IN LAST 30 DAYS: No - Related Data Allergies/Adverse Reactions: No Known Allergies Allergy (Verified 06/05/20 08:50) Past Medical History - Social History Smoking Status: Never Smoker Chew tobacco use (# tins/day): No Frequency of alcohol use: None Drug Abuse: Marijuana Family History: Reviewed & Not Pertinent, Thyroid Disfunction, Other - Anemia Pulmonary Medical History: Reports: Hx Bronchitis Neurological Medical History: Reports: Hx Migraine - MS Renal/ Medical History: Reports: Hx Pelvic Inflammatory Disease. Denies: Hx Peritoneal Dialysis Musculoskeletal Medical History: Reports Hx Multiple Sclerosis - Followed at [facility]. Currently Dr. Weinberg. Psychiatric Medical History: Reports: Hx Depression Past Surgical History: Reports: Hx Dilation and Curettage, Hx Oral Surgery - Immunizations Immunizations up to date: Yes Hx Diphtheria, Pertussis, Tetanus Vaccination: Yes - <5 years Review of Systems - Review of Systems Notes: REVIEW OF SYSTEMS: CONSTITUTIONAL : Denies recent illness. Denies recent unintentional weight loss. Denies fever, chills, or sweats. EENT: Denies eye, ear, throat, or mouth pain, discharge, or symptoms. Denies nasal or sinus congestion. CARDIOVASCULAR: Denies chest pain. RESPIRATORY: Denies shortness of breath, cough, congestion, difficulty breathing, or wheezing. GASTROINTESTINAL: Denies nausea, vomiting, and diarrhea. Denies abdominal pain. Denies constipation. GENITOURINARY: Denies difficulty urinating, burning, blood in urine, urgency or frequency. FEMALE GENITOURINARY: See HPI. MUSCULOSKELETAL: Denies neck and back pain. Denies joint pain or swelling. SKIN: Denies rash, itchiness, or lesions HEMATOLOGIC : Denies easy bruising or bleeding. LYMPHATIC: Denies swollen, painful, enlarged glands. NEUROLOGICAL: Denies no numbness or tingling denies weakness. Denies headache. Denies altered mental status. Denies alteration in speech. PSYCHIATRIC: Denies stress, anxiety, alteration in sleep patterns, or depression. All other systems reviewed and negative. Physical Exam - Vital signs Vitals: Temp Pulse Resp BP Pulse Ox 97.9 F 92 14 108/54 L 99 10/06/20 11:58 10/06/20 11:58 10/06/20 11:58 10/06/20 11:58 10/06/20 11:58 - Notes Notes: PHYSICAL EXAMINATION: GENERAL: Appears well, healthy, well-nourished, no acute distress. HEAD: Normocephalic, atraumatic. EYES: PERRL, conjunctiva normal, all extraocular movements intact, sclera nonicteric ENT: Moist mucous membranes. NECK: Supple, no noticeable swelling, redness, rash. Normal range of motion. LUNGS: Equal breath sounds bilaterally and clear to auscultation. No wheezes rales or rhonchi. CARDIOVASCULAR: S1-S2, regular rate, regular rhythm. Radial pulses 2+, normal. ABDOMEN: Normoactive bowel sounds. Soft, nontender, no guarding, no rebound tenderness, and no masses palpated. EXTREMITIES: Normal strength and range of motion, no pitting or edema. No cyanosis. NEUROLOGICAL: Moves all extremities upon command. Strength 5/5 in all extremities. PSYCH: Normal mood, normal affect. SKIN: Warm, dry. Excoriation noted in her thighs and labia area SOFTWARE ENGINEERING MANAGER: Moderate amount of brown discharge noted to vaginal canal. No cervical mo tion tenderness or adnexal tenderness noted. Course - Re-evaluation Re-evalutation: 10/06/20 14:33 AMILCAR Fox at bedside for. No cervical motion tenderness or adnexal tenderness noted. There is some excoriation noted to patient's inner thighs and labia. Wet mount and gonorrhea and chlamydia sent. 10/06/20 15:58 Presentation is most consistent with bacterial vaginosis. Examination is without evidence of cervical motion tenderness, adnexal tenderness, no abdominal tenderness. Do not suspect tubo-ovarian abscess, gonorrhea, chlamydia, or pelvic inflammatory disease. Vitals within normal limits. Wet mount does demonstrate bacteria and white blood cells. Patient will be started on metronidazole. She has been discharged home with return precautions and follow- up recommendations. Patient will also be started on cetirizine for seasonal allergies. - Vital Signs Vital signs: Temp Pulse Resp BP Pulse Ox 98.6 F 86 12 107/71 99 10/06/20 16:39 10/06/20 16:39 10/06/20 16:39 10/06/20 16:39 10/06/20 16:39 - Laboratory Laboratory results interpreted by me: 10/06/20 14:05 Urine Blood SMALL H Ur Leukocyte Esterase SMALL H Discharge - Discharge Clinical Impression: Bacterial vaginosis, Vaginal itching, Seasonal allergies Condition: Stable Disposition: HOME, SELF-CARE Additional Instructions: You have an overgrowth of natural vaginal bacteria, called bacterial vaginosis. You are being treated with an antibiotic called metronidazole. Do not drink alc ohol while taking this medication. Complete all of the antibiotic even if your symptoms have resolved. Return for abdominal pain, vomiting, fever of greater than 101F, or any other symptoms that are worrisome to you. Please follow-up with your PHYSICAL SCIENCES PROFESSOR or primary care doctor as needed. Take cetirizine for your seasonal allergies. Use the cream on the outside of your vagina and on your inner thighs. You were also treated for gonorrhea and chlamydia. If your results are positive, my nurse will give you a call with those results. Do not have sex until you are completely finished with your antibiotics. Prescriptions: Cetirizine HCl [All Day Allergy] 10 mg PO DAILY #30 tablet Metronidazole [Flagyl 500 mg Tablet] 500 mg PO Q6H #28 tablet Miscellaneous Medication [Happy Hiney Cream] 1 applic TOP ASDIR PRN #30 gm PRN Reason: Forms: Return to Work [facility] [Provider Group] - Follow up as needed
[2020-10-06 14:36] LABS: BACTERIA (WET MOUNT) 3+ BACTERIA SEEN; EPITHELIALS (WET MOUNT) 3+ EPITHELIALS SEEN; RBCS (WET MOUNT) 3+ RBCS SEEN; T.VAGINALIS (WET MOUNT) TRICHOMONAS SEEN; WBCS (WET MOUNT) 1+ WBCS SEEN; YEAST (WET MOUNT) NO YEAST SEEN
[2020-10-06 15:02] LABS: AMORPHOUS SEDIMENT,URINE 1+ /HPF; APPEARANCE,URINE TURBID; BILIRUBIN,URINE NEGATIVE (NEGATIVE); COLOR,URINE YELLOW; GLUCOSE, URINE NEGATIVE (NEGATIVE); KETONES,URINE NEGATIVE (NEGATIVE); LEUKOCYTE ESTERASE,URINE SMALL (NEGATIVE); NITRITE,URINE NEGATIVE (NEGATIVE); PROTEIN,URINE NEGATIVE (NEGATIVE); URINE SPECIFIC GRAVITY 1.023; UROBILINOGEN,URINE NEGATIVE mg/dL (<2.0)
[2020-10-06 16:05] LABS: CHLAM PCR NOT DETECTED (NOT DETECT)
[2020-10-06] MEDS ORDERED: LIDOCAINE 1% INJ-PF (10 MG/ML) 30 ML SDV INJ ONE (16:06)
[2020-10-06] MEDS ORDERED: AZITHROMYCIN 250 MG TABLET PO ONE (16:06)
[2020-10-06] MEDS ORDERED: CEFTRIAXONE INJ 250 MG VIAL IM ONE (16:06)
[2020-10-06 16:41] VITALS: BP 107/71
== END 2020-10-06 16:39 | disposition home or self-care (01) ==
LOC: ER 11:54
DX: N76.0 Acute vaginitis (principal); B96.89 Other specified bacterial agents as the cause of diseases classified elsewhere; J30.2 Other seasonal allergic rhinitis; R21 Rash and other nonspecific skin eruption
CPT/HCPCS: 99284; 96372; 87086; 87210; 81025; 81001; 87491; 87591; Q0144; J3490 ×2; J0696